=== PATIENT | male | born 1975 | race African-American/Black ===

== ENCOUNTER 2018-09-17 02:37 | Inpatient (IN) | payer MEDICAID ==
[~2018-09-17] VITALS: Ht 188 cm; Wt 85.4 kg
[2018-09-17 03:34] LABS: Basophils # (auto) 0 uL; Basophils % (auto) 0.7 % (0.0-2.0); Eosinophils # (auto) 0.1 uL; Eosinophils % (auto) 2.6 % (0.0-7.0); Hematocrit 41.6 % (41.0-53.0); Hemoglobin 13.7 g/dL (13.5-17.5); Lymphocytes # (auto) 1.6 uL; Lymphocytes % (auto) 29.9 % (10.0-50.0); Mean Corpuscular Hemoglobin 31.1 pg (28.0-32.0); Mean Corpuscular Volume 94.4 fL (80.0-100.0); Monocytes # (auto) 0.8 uL; Monocytes % (auto) 13.8 % (0.0-12.0); Neutrophils # (auto) 2.9 uL; Nucleated Red Blood Cells % 0.3 %; Platelet Count (auto) 162 10^3/uL (140-450); Red Blood Cells 4.41 10^6/uL (4.5-5.90); Red Cell Distribution Width 15.1 % (11.8-14.3); White Blood Cell 5.5 10^3/uL (4.4-10.8)
[2018-09-17 03:49] LABS: Albumin 2.9 g/dL (3.4-5.0); Anion Gap 11 (5-15); BUN/Creatinine Ratio 12.4; Blood Urea Nitrogen 16 mg/dL (7-18); Calcium 8.4 mg/dL (8.5-10.1); Carbon Dioxide 21 mmol/L (21-32); Chloride 108 mmol/L (98-107); GFR African American 79 mL/min; GFR Non-African American 65 mL/min; Glucose 105 mg/dL (74-106); Magnesium 2.4 mg/dL (1.6-2.6); Potassium 4.9 mmol/L (3.5-5.1); Sodium 140 mmol/L (136-145)
[2018-09-17 03:54] LABS: Alanine Aminotransferase 474 U/L (16-61); Alkaline Phosphatase 117 U/L (45-117); Aspartate Aminotransferase 204 U/L (15-37); Bilirubin, Total 1.6 mg/dL (0.2-1.0); Total Protein 6.3 g/dL (6.4-8.2)
[2018-09-17] MEDS ORDERED: ASPirin 81 mg TAB PO ONE (07:00)
[2018-09-17] MEDS ORDERED: FUROSEMIDE 40 MG/4 ML VIAL IV ONE ×2 (07:00→21:45)
[2018-09-17] MEDS ORDERED: ENOXAPARIN SOD 100 MG/1 ML SYRINGE SC ONE (08:00)
[2018-09-17] MEDS ORDERED: NITROGLYCERIN 0.4 MG SL TAB SL PRN (09:15)
[2018-09-17] MEDS ORDERED: ACETAMINOPHEN 500 MG TAB PO PRN (09:15)
[2018-09-17] MEDS ORDERED: MORPHINE SULF INJ 2 MG/ML SYRINGE 1ML IV PRN (09:15)
[2018-09-17] MEDS ORDERED: traMADol HCL 50 MG TAB PO PRN (09:15)
[2018-09-17] MEDS ORDERED: TEMAZEPAM 15 MG CAP PO PRN (09:15)
[2018-09-17] MEDS ORDERED: LACTULOSE 20Gm/30ML SOLN PO PRN (09:15)
[2018-09-17] MEDS ORDERED: PROMETHAZINE HCL 25 MG/ML 1ML IV PRN (09:15)
[2018-09-17] MEDS ORDERED: FUROSEMIDE 40 MG/4 ML VIAL IV SCH (10:00)
[2018-09-17] MEDS ORDERED: ENALAPRIL MALEATE 2.5 MG TAB PO SCH (10:00)
[2018-09-17] MEDS ORDERED: LISINOPRIL 5 MG TAB PO SCH (10:00)
[2018-09-17] MEDS ORDERED: CARVEDILOL 3.125 MG TAB PO SCH (10:00)
[2018-09-17] MEDS ORDERED: ENOXAPARIN SOD 100 MG/1 ML SYRINGE SC SCH (10:00)
[2018-09-17] MEDS: POTASSIUM CHL 20 Meq TABLET PO SCH (10:09)
[2018-09-17] MEDS: PANTOPRAZOLE 40 MG TAB PO SCH (10:09)
[2018-09-17] MEDS: ASPirin 81 mg TAB PO SCH (10:09)
[2018-09-17] MEDS: NITROGLYCERIN 0.2MG/HR TOPICAL PATCH TD SCH (10:10)
[2018-09-17] MEDS: METOPROLOL SUCCINATE XL 50 MG TAB PO SCH (10:12)
[2018-09-17] MEDS ORDERED: BUMETANIDE 2.5mg/10ml (0.25 mg/ml) INJ IV ONE (14:30)
[2018-09-17] MEDS: SODIUM CHLOR 0.9% PF (SALINE LOCK) 10ML VIAL/SYR IV SCH ×2 (14:41→22:02)
[2018-09-17] MEDS: ATORVASTATIN 20 MG TAB PO SCH (22:42)
[2018-09-17] MEDS: ENALAPRIL MALEATE 2.5 MG TAB PO SCH (22:43)
[2018-09-18 03:51] LABS: Basophils # (auto) 0.1 uL; Basophils % (auto) 2.6 % (0.0-2.0); Eosinophils # (auto) 0.2 uL; Eosinophils % (auto) 4.7 % (0.0-7.0); Hematocrit 44.6 % (41.0-53.0); Hemoglobin 14.8 g/dL (13.5-17.5); Lymphocytes # (auto) 1.9 uL; Lymphocytes % (auto) 37.5 % (10.0-50.0); Mean Corpuscular Hemoglobin 31.2 pg (28.0-32.0); Mean Corpuscular Hgb Conc. 33.3 g/dL (32.0-36.0); Mean Corpuscular Volume 93.8 fL (80.0-100.0); Monocytes # (auto) 0.7 uL; Monocytes % (auto) 12.8 % (0.0-12.0); Neutrophils # (auto) 2.2 uL; Neutrophils % (auto) 42.4 % (37.0-80.0); Nucleated Red Blood Cells % 0.2 %; Red Blood Cells 4.76 10^6/uL (4.5-5.90); Red Cell Distribution Width 14.9 % (11.8-14.3); White Blood Cell 5.2 10^3/uL (4.4-10.8)
[2018-09-18 04:36] LABS: BUN/Creatinine Ratio 14.8; Potassium 3.9 mmol/L (3.5-5.1)
[2018-09-18 04:40] LABS: Total Protein 6.3 g/dL (6.4-8.2)
[2018-09-18 04:49] LABS: Platelet Count (auto) 159 10^3/uL (140-450)
[2018-09-18] MEDS: SODIUM CHLOR 0.9% PF (SALINE LOCK) 10ML VIAL/SYR IV SCH ×3 (06:25→22:09)
[2018-09-18] MEDS: FUROSEMIDE 40 MG/4 ML VIAL IV SCH ×2 (07:03→18:07)
[2018-09-18] MEDS: NITROGLYCERIN 0.2MG/HR TOPICAL PATCH TD SCH (10:00)
[2018-09-18] MEDS ORDERED: fentaNYL CITRATE 100 MCG/2 ML VL ONE (11:08)
[2018-09-18] MEDS ORDERED: MIDAZOLAM HCL 1MG/1ML-2 ML VIAL ONE (11:08)
[2018-09-18] MEDS ORDERED: SODIUM CHL 0.9% 0 ML ONE (11:08)
[2018-09-18] MEDS ORDERED: ANGIOMAX 250 MG VIAL IV ONE (11:08)
[2018-09-18] MEDS ORDERED: LIDOCAINE 2%HCL (LOCAL ANESTH.) INJ 20ML MDV ONE (11:15)
[2018-09-18] MEDS ORDERED: IODIXANOL 320MG/ML 100ML BTL IV ONE (11:25)
[2018-09-18] MEDS ORDERED: THIAMINE HCL 100 MG TAB PO ONE (13:15)
--- NOTE | 2018-09-18 14:00 | NUR ---
RECEIVED PT FROM HUMAN RESOURCES OFFICE MANAGER STAFF, PT BROUGHT IN WHEELCHAIR. PT AWAKE, ALERT, ORIENTEDx4, VITAL SIGNS STABLE: 97.4; 88; 22; 99% ON ROOM AIR; 112/70 (85) VASC BAND TO RIGHT WRIST NO BLEEDING AT THIS TIME. ORIENTED PT TO ROOM ENVIRONMENT, BED LOCKED AND IN LOWEST POSITION, CALL LIGHT WITHIN REACH. WILL CONTINUE TO MONITOR. AT 1420: VASC BAND DEFLATED LAST 2ML OF AIR REMOVED, BAND REMOVED AND GAUZE AND TEGADERM APPLIED, NO ACTIVE BLEEDING AT THIS TIME. PT DENIES DISCOMFORT, SENSATION IS INTACT WITH WARM TO TOUCH SKIN TEMPERATURE TO RIGHT HAND. VASC BAND PLACED AT BEDSIDE WITH SYRINGE, PT AWARE OF INSTRUMENTS. VERBALIZES UNDERSTANDING. CALL LIGHT WITHIN REACH. WILL CONTINUE TO MONITOR.
[2018-09-18 14:10] VITALS: BP 112/70
[2018-09-18] MEDS: PANTOPRAZOLE 40 MG TAB PO SCH (14:54)
[2018-09-18] MEDS: POTASSIUM CHL 20 Meq TABLET PO SCH (14:54)
[2018-09-18] MEDS: ASPirin 81 mg TAB PO SCH (14:54)
[2018-09-18] MEDS: ENALAPRIL MALEATE 2.5 MG TAB PO SCH ×2 (14:55→22:02)
[2018-09-18] MEDS: METOPROLOL SUCCINATE XL 50 MG TAB PO SCH (14:56)
--- NOTE | 2018-09-18 16:00 | NUR ---
PT MADE AWARE AND EXPLAINED REASON FOR NPO DUE TO PENDING LIVER US. FAMILY AWARE, PT AWARE. US DEPARTMENT STATES THAT US IS PENDING FOR 1900, INFORMATION RELAYED TO PATIENT.
[2018-09-18 16:44] VITALS: BP 112/72
[2018-09-18 21:17] VITALS: BP 109/76
[2018-09-18] MEDS: ATORVASTATIN 20 MG TAB PO SCH (22:08)
[2018-09-19 04:16] VITALS: BP 109/69
[2018-09-19] MEDS: SODIUM CHLOR 0.9% PF (SALINE LOCK) 10ML VIAL/SYR IV SCH ×3 (06:16→21:14)
[2018-09-19] MEDS: FUROSEMIDE 40 MG/4 ML VIAL IV SCH ×2 (06:17→18:22)
--- NOTE | 2018-09-19 06:24 | NUR ---
DRESSING TO RIGHT WRIST REMAINS C/D/I. NO BLEEDING OR HEMATOMA FORMATION NOTED AT SITE. RADIAL PULSES INTACT BILATERALLY.
[2018-09-19 07:07] LABS: Albumin 2.9 g/dL (3.4-5.0); Calcium 8.9 mg/dL (8.5-10.1); Magnesium 2.7 mg/dL (1.6-2.6); Potassium 3.9 mmol/L (3.5-5.1)
[2018-09-19 07:09] LABS: Bilirubin, Total 1.4 mg/dL (0.2-1.0); Total Protein 6.3 g/dL (6.4-8.2)
[2018-09-19 08:00] VITALS: BP 100/60
--- NOTE | 2018-09-19 08:00 | NUR ---
Opening Shift Note Assumed care of patient, awake, alert and oriented X4. No S/S of distress/SOB or pain. Tele# 23, sinus rhythm @ 95 bpm. IV to right forearm, 20 gauge, patent and saline locked. Instructed on POC and to for assist PRN, verbalized understanding. Bed locked, in lowest position, call light within reach, will continue to monitor for changes Q1hr and PRN.
--- NOTE | 2018-09-19 08:45 | NUR ---
Faxed Life Vest order to [facility].
[2018-09-19 09:44] LABS: Basophils # (auto) 0 uL; Basophils % (auto) 0.9 % (0.0-2.0); Eosinophils # (auto) 0.3 uL; Hematocrit 45.6 % (41.0-53.0); Hemoglobin 15.3 g/dL (13.5-17.5); Lymphocytes # (auto) 1.8 uL; Lymphocytes % (auto) 38.1 % (10.0-50.0); Mean Corpuscular Hemoglobin 31.2 pg (28.0-32.0); Mean Corpuscular Hgb Conc. 33.6 g/dL (32.0-36.0); Monocytes # (auto) 0.6 uL; Monocytes % (auto) 11.9 % (0.0-12.0); Neutrophils # (auto) 2.1 uL; Neutrophils % (auto) 43.1 % (37.0-80.0); Nucleated Red Blood Cells % 0.1 %; Platelet Count (auto) 165 10^3/uL (140-450); Red Blood Cells 4.91 10^6/uL (4.5-5.90); Red Cell Distribution Width 14.8 % (11.8-14.3); White Blood Cell 4.8 10^3/uL (4.4-10.8)
[2018-09-19] MEDS: ENOXAPARIN SOD 40 MG/0.4 ML SYRINGE SC SCH (10:00)
[2018-09-19] MEDS: ASPirin 81 mg TAB PO SCH (12:33)
[2018-09-19] MEDS: MULTIPLE VITAMINS W/ MINERALS TAB PO SCH (12:34)
[2018-09-19] MEDS: PANTOPRAZOLE 40 MG TAB PO SCH (12:34)
[2018-09-19] MEDS: THIAMINE HCL 100 MG TAB PO SCH (12:34)
[2018-09-19] MEDS: POTASSIUM CHL 20 Meq TABLET PO SCH (12:34)
[2018-09-19] MEDS: METOPROLOL SUCCINATE XL 50 MG TAB PO SCH (12:58)
[2018-09-19] MEDS: ENALAPRIL MALEATE 2.5 MG TAB PO SCH ×2 (13:02→21:16)
[2018-09-19 14:13] VITALS: BP 100/59
[2018-09-19 16:57] VITALS: BP 108/71
--- NOTE | 2018-09-19 19:34 | NUR ---
Care endorsed to DENNIS Erickson, night nurse.
[2018-09-19] MEDS: ATORVASTATIN 20 MG TAB PO SCH (21:15)
[2018-09-19 22:00] VITALS: BP 117/53
--- NOTE | 2018-09-20 00:50 | NUR ---
AMBULATION PATIENT AMBULATING AROUND NURSING STATION AND IN HALLWAYS ON RA. NO S/S OF DISTRESS NOTED, NO COMPLAINT OF SOB. GAIT IS STEADY.
[2018-09-20 04:53] VITALS: BP 100/63
[2018-09-20] MEDS: FUROSEMIDE 40 MG/4 ML VIAL IV SCH (06:00)
[2018-09-20 06:16] LABS: Albumin 3.1 g/dL (3.4-5.0); Bilirubin, Direct 0.5 mg/dL (0-0.2)
[2018-09-20 06:18] LABS: Bilirubin, Total 1.2 mg/dL (0.2-1.0); Total Protein 6.1 g/dL (6.4-8.2)
[2018-09-20] MEDS: SODIUM CHLOR 0.9% PF (SALINE LOCK) 10ML VIAL/SYR IV SCH ×2 (06:18→13:30)
[2018-09-20 06:47] LABS: Anion Gap 10 (5-15); BUN/Creatinine Ratio 17.7; Blood Urea Nitrogen 22 mg/dL (7-18); Calcium 8.4 mg/dL (8.5-10.1); Carbon Dioxide 27 mmol/L (21-32); Chloride 103 mmol/L (98-107); GFR African American 82 mL/min; GFR Non-African American 68 mL/min; Glucose 109 mg/dL (74-106); Potassium 4.2 mmol/L (3.5-5.1); Sodium 140 mmol/L (136-145)
--- NOTE | 2018-09-20 08:00 | NUR ---
Opening Shift Note Assumed care of patient, awake, alert and oriented X4. No S/S of distress/SOB or pain. Tele# 23, sinus tachycardia @ 136 bpm. IV to right forearm, 20 gauge, patent and saline locked. Right wrist incision with dressing clean, dry and intact. Instructed on POC and to call for assist PRN, verbalized understanding. Bed locked, in lowest position, call light within reach, will continue to monitor for changes Q1hr and PRN.
[2018-09-20 08:30] VITALS: BP 105/68
--- NOTE | 2018-09-20 09:46 | NUR ---
ROUNDS Dr Nugent at bedside for rounds, new orders received and followed through. Patient updated on plan of care, verbalized understanding.
[2018-09-20] MEDS: PANTOPRAZOLE 40 MG TAB PO SCH (10:27)
[2018-09-20] MEDS: POTASSIUM CHL 20 Meq TABLET PO SCH (10:27)
[2018-09-20] MEDS: ENOXAPARIN SOD 40 MG/0.4 ML SYRINGE SC SCH (10:27)
[2018-09-20] MEDS: ASPirin 81 mg TAB PO SCH (10:27)
[2018-09-20] MEDS: ENALAPRIL MALEATE 2.5 MG TAB PO SCH (10:28)
[2018-09-20] MEDS: THIAMINE HCL 100 MG TAB PO SCH (10:29)
[2018-09-20] MEDS: MULTIPLE VITAMINS W/ MINERALS TAB PO SCH (10:29)
[2018-09-20] MEDS: METOPROLOL SUCCINATE XL 50 MG TAB PO SCH (10:29)
[2018-09-20] MEDS ORDERED: ATOR10TA PO (11:11)
[2018-09-20] MEDS ORDERED: POTA1TAB61 PO (11:11)
[2018-09-20] MEDS ORDERED: METO25TA4 PO (11:11)
[2018-09-20] MEDS ORDERED: ENAL5TAB85 PO (11:11)
[2018-09-20] MEDS ORDERED: FURO40TA PO (11:11)
[2018-09-20] MEDS ORDERED: [UNRECOGNIZED DRUG - CODE] PO (11:11)
--- NOTE | 2018-09-20 12:10 | NUR ---
CT Patient taken for CT via bed, no distress noted upon departure.
[2018-09-20 13:00] VITALS: BP 114/70
[2018-09-20 17:12] VITALS: BP 113/82
[2018-09-20 17:29] VITALS: BP 105/68
[2018-09-21 11:00] LABS: Hepatitis B Surface Antibody Negative
[2018-09-21 11:31] LABS: Hepatitis A Total Antibody Negative
[2018-09-21 13:45] LABS: Hepatitis C Antibody Negative (Negative)
[2018-09-21 13:46] LABS: Hepatitis B Core Total AB Negative; Hepatitis B Surface Antigen Negative (Negative)
== END 2018-09-20 18:30 | disposition home or self-care (01) | DRG 190 ==
LOC: ER 02:37 → OVERFLOW 02:38 → TELE-WESTW 09-18 14:25
PROVIDERS: ADMIT Internal Medicine; ATTEND Internal Medicine
PROC: 4A023N7 Measurement of Cardiac Sampling and Pressure, Left Heart, Percutaneous Approach (ICD-10-PCS; principal; 2018-09-18)
PROC: B2111ZZ Fluoroscopy of Multiple Coronary Arteries using Low Osmolar Contrast (ICD-10-PCS; 2018-09-18)
PROC: B2151ZZ Fluoroscopy of Left Heart using Low Osmolar Contrast (ICD-10-PCS; 2018-09-18)
DX: I21.A1 Myocardial infarction type 2 (principal); I50.43 Acute on chronic combined systolic (congestive) and diastolic (congestive) heart failure; I42.0 Dilated cardiomyopathy; K70.9 Alcoholic liver disease, unspecified; I42.7 Cardiomyopathy due to drug and external agent; I11.0 Hypertensive heart disease with heart failure; F15.10 Other stimulant abuse, uncomplicated; F10.10 Alcohol abuse, uncomplicated; F17.210 Nicotine dependence, cigarettes, uncomplicated; R73.03 Prediabetes; F12.10 Cannabis abuse, uncomplicated; Z79.899 Other long term (current) drug therapy; Y90.9 Presence of alcohol in blood, level not specified
CPT/HCPCS: 36415; 71045; 76705; 80048; 80053; 80061; 80076; 82550; 83036; 83735; 83880; 84443; 84484; 85025; 86704; 86706; 86708; 86803; 87340; 93005; 93306; G0378; J2250; Q9967

== ENCOUNTER 2018-12-09 20:55 | Inpatient (IN) | payer MEDICAID ==
[~2018-12-09] VITALS: Ht 157.5 cm; Wt 113.4 kg
[~2018-12-09 20:55] MED LIST: APIX5TAB PO; ATOR10TA PO; BUSP10TA31 PO; FURO1TAB31 PO; METO25TA36 PO; POTA1TAB61 PO; SPIR25TA88 PO; [UNRECOGNIZED DRUG - CODE] PO
[2018-12-09 22:07] LABS: Basophils # (auto) 0 uL; Eosinophils # (auto) 0 uL; Eosinophils % (auto) 0.3 % (0.0-7.0); Hematocrit 40.3 % (41.0-53.0); Hemoglobin 13.2 g/dL (13.5-17.5); Lymphocytes # (auto) 1.2 uL; Lymphocytes % (auto) 26.7 % (10.0-50.0); Mean Corpuscular Hemoglobin 27.9 pg (28.0-32.0); Mean Corpuscular Hgb Conc. 32.7 g/dL (32.0-36.0); Mean Corpuscular Volume 85.1 fL (80.0-100.0); Monocytes # (auto) 0.6 uL; Monocytes % (auto) 13.7 % (0.0-12.0); Neutrophils # (auto) 2.5 uL; Neutrophils % (auto) 58.3 % (37.0-80.0); Nucleated Red Blood Cells % 0.1 %; Platelet Count (auto) 111 10^3/uL (140-450); Red Blood Cells 4.74 10^6/uL (4.5-5.90); Red Cell Distribution Width 19.9 % (11.8-14.3); White Blood Cell 4.4 10^3/uL (4.4-10.8)
[2018-12-09 22:13] LABS: INR 1.4 (0.9-1.15); Partial Thromboplastin Time 32.6 sec (23.64-32.05)
[2018-12-09] MEDS ORDERED: FUROSEMIDE 40 MG/4 ML VIAL IV ONE (22:15)
[2018-12-09] MEDS ORDERED: MORPHINE SULF INJ 2 MG/ML SYRINGE 1ML IV ONE (22:45)
[2018-12-09] MEDS ORDERED: LORazepam 2MG/ML-1ML VIAL IV ONE (22:45)
[2018-12-09 23:19] LABS: Chloride 104 mmol/L (98-107); Potassium 4.3 mmol/L (3.5-5.1); Sodium 136 mmol/L (136-145)
[2018-12-09 23:20] LABS: Alanine Aminotransferase 52 U/L (16-61); Albumin 2.9 g/dL (3.4-5.0); Alkaline Phosphatase 128 U/L (45-117); Anion Gap 11 (5-15); Aspartate Aminotransferase 43 U/L (15-37); BUN/Creatinine Ratio 23.8; Bilirubin, Total 2.8 mg/dL (0.2-1.0); Blood Urea Nitrogen 31 mg/dL (7-18); Carbon Dioxide 21 mmol/L (21-32); GFR African American 77 mL/min; GFR Non-African American 64 mL/min; Glucose 117 mg/dL (74-106); Magnesium 2.5 mg/dL (1.6-2.6); Total Protein 7.1 g/dL (6.4-8.2)
[2018-12-10] MEDS ORDERED: MORPHINE SULF INJ 2 MG/ML SYRINGE 1ML IV PRN (04:30)
[2018-12-10] MEDS ORDERED: NITROGLYCERIN 0.4 MG SL TAB SL PRN (04:30)
[2018-12-10] MEDS ORDERED: ACETAMINOPHEN 500 MG TAB PO PRN (04:30)
[2018-12-10 05:23] LABS: Alcohol, Urine < 3.0 mg/dL (0-5); Amphetamine Screen, Urine NEGATIVE (NEGATIVE); Barbiturate Scree,Urine NEGATIVE (NEGATIVE); Benzodiazephine Screen, Urine NEGATIVE (NEGATIVE); Cannabinoid Screen, Urine POSITIVE (NEGATIVE); Cocaine Screen, Urine NEGATIVE (NEGATIVE); Phencyclidine Screen, Urine NEGATIVE (NEGATIVE)
[2018-12-10 05:25] LABS: Urine Bacteria NONE SEEN /hpf (None Seen); Urine Blood Negative /uL (Negative); Urine Hyaline Cast MOD /lpf (0 - 2); Urine Specific Gravity 1.012 (1.001-1.035); Urine WBC 1 /hpf (0 - 3)
[2018-12-10 05:30] LABS: Opiate Scree,Urine NEGATIVE (NEGATIVE)
[2018-12-10] MEDS ORDERED: FUROSEMIDE 40 MG/4 ML VIAL IV SCH (06:00)
[2018-12-10] MEDS: busPIRone HCL 10 MG TAB PO SCH ×3 (06:10→22:43)
[2018-12-10] MEDS: BUMETANIDE 1mg/4ml VIAL (0.25mg/ml) IV SCH ×2 (06:10→17:43)
[2018-12-10] MEDS ORDERED: HEPARIN DRIP/D5W 100UNITS/ML 250 ML IV SCH (06:29)
[2018-12-10] MEDS ORDERED: HEPARIN SODIUM (PORCINE) 5000 UNITS/ML 1ML VIAL IV ONE (06:30)
[2018-12-10] MEDS: ONDANSETRON HCL 4 MG/2 ML VIAL IV PRN (07:47)
[2018-12-10 08:17] LABS: Basophils # (auto) 0.1 uL; Basophils % (auto) 1.8 % (0.0-2.0); Eosinophils # (auto) 0 uL; Eosinophils % (auto) 0.2 % (0.0-7.0); Hematocrit 44.2 % (41.0-53.0); Hemoglobin 14.4 g/dL (13.5-17.5); Lymphocytes # (auto) 2.2 uL; Mean Corpuscular Hemoglobin 27.4 pg (28.0-32.0); Mean Corpuscular Hgb Conc. 32.5 g/dL (32.0-36.0); Mean Corpuscular Volume 84.3 fL (80.0-100.0); Monocytes # (auto) 0.5 uL; Monocytes % (auto) 10.7 % (0.0-12.0); Neutrophils # (auto) 2.2 uL; Neutrophils % (auto) 44.3 % (37.0-80.0); Nucleated Red Blood Cells % 0.3 %; Platelet Count (auto) 109 10^3/uL (140-450); Red Blood Cells 5.25 10^6/uL (4.5-5.90); Red Cell Distribution Width 19.9 % (11.8-14.3)
--- NOTE | 2018-12-10 09:13 | NUR ---
Telemetry admit from ER JEWELS TORRESClarenceMaycol admitted to Telemetry unit after SBAR received. Patient oriented to ZENIA ERWIN, primary RN, unit, room, bed, and unit policies regarding patient care and visiting hours. Patient now on continuous telemetry monitoring, tele box 56 and telemetry reading on arrival to unit is SR 104. Patient weighed by bedscale and encouraged to call if they need something. All questions and concerns addressed, patient verbalized understanding.
[2018-12-10] MEDS ORDERED: APIX5TAB PO (09:33)
[2018-12-10] MEDS ORDERED: ENALAPRIL MALEATE 2.5 MG TAB PO SCH (10:00)
[2018-12-10] MEDS ORDERED: APIXABAN 5 MG TAB PO SCH (10:00)
[2018-12-10] MEDS: CARVEDILOL 3.125 MG TAB PO SCH ×2 (11:43→22:42)
[2018-12-10] MEDS: ASPirin-EC 81 mg tab PO SCH (11:44)
[2018-12-10] MEDS: FAMOTIDINE 20 MG TAB PO SCH (11:44)
[2018-12-10] MEDS: metOLazone 5 MG TAB PO SCH (11:45)
--- NOTE | 2018-12-10 12:52 | NUR ---
MRSA sent to lab.
[2018-12-10] MEDS: HYDROcodone-ACET 5/325MG TAB PO PRN ×2 (15:50→22:43)
[2018-12-10] MEDS: ALBUMIN 25% 50 ML IV SCH ×2 (15:59→22:45)
[2018-12-10 17:35] VITALS: BP 97/62
--- NOTE | 2018-12-10 19:00 | NUR ---
Opening Shift Note Assumed care of patient, awake and alert. No S/S of distress/SOB or pain. Instructed on POC and to call for assist PRN, will continue to monitor for changes Q1hr and PRN.
[2018-12-10 22:08] VITALS: BP 136/89
[2018-12-10] MEDS: ATORVASTATIN 20 MG TAB PO SCH (22:43)
[2018-12-10] MEDS: SACUBITRIL-VALSARTAN 24mg/26mg TAB PO SCH (22:44)
[2018-12-11] VITALS (7 sets, daily range): BP systolic 87–99; BP diastolic 39–59
[2018-12-11] MEDS: BUMETANIDE 1mg/4ml VIAL (0.25mg/ml) IV SCH ×2 (06:00→17:56)
[2018-12-11] MEDS: ALBUMIN 25% 50 ML IV SCH ×2 (06:37→22:01)
[2018-12-11] MEDS: busPIRone HCL 10 MG TAB PO SCH ×3 (06:38→22:03)
[2018-12-11] MEDS ORDERED: DIGOXIN (250MCG/ML) 2 ML AMPULE IV ONE (07:30)
--- NOTE | 2018-12-11 08:30 | NUR ---
Opening Shift Note Assumed care of patient, awake and alert. No S/S of distress/SOB or pain. Bed is in lowest position with 2x side rails up for safety and call light is within reach. Instructed on POC and to call for assist PRN, will continue to monitor for changes Q1hr and PRN.
[2018-12-11] MEDS: DOBUTamine 1000MCG/ML 250 ML IV SCH ×2 (08:38→22:02)
[2018-12-11] MEDS: ASPirin-EC 81 mg tab PO SCH (08:46)
[2018-12-11] MEDS: FAMOTIDINE 20 MG TAB PO SCH (08:47)
[2018-12-11] MEDS: metOLazone 5 MG TAB PO SCH (10:00)
[2018-12-11] MEDS: CARVEDILOL 3.125 MG TAB PO SCH ×2 (10:00→22:05)
[2018-12-11] MEDS: SACUBITRIL-VALSARTAN 24mg/26mg TAB PO SCH ×2 (10:00→22:02)
[2018-12-11 10:09] LABS: Basophils # (auto) 0.1 uL; Eosinophils # (auto) 0 uL; Eosinophils % (auto) 1.2 % (0.0-7.0); Hemoglobin 12.5 g/dL (13.5-17.5); Lymphocytes # (auto) 1.6 uL; Lymphocytes % (auto) 41.5 % (10.0-50.0); Mean Corpuscular Hemoglobin 27.6 pg (28.0-32.0); Mean Corpuscular Hgb Conc. 32.8 g/dL (32.0-36.0); Mean Corpuscular Volume 84.2 fL (80.0-100.0); Monocytes # (auto) 0.4 uL; Monocytes % (auto) 11.3 % (0.0-12.0); Neutrophils # (auto) 1.7 uL; Nucleated Red Blood Cells % 0.1 %; Platelet Count (auto) 85 10^3/uL (140-450); Red Blood Cells 4.51 10^6/uL (4.5-5.90); Red Cell Distribution Width 19.7 % (11.8-14.3); White Blood Cell 3.9 10^3/uL (4.4-10.8)
[2018-12-11 10:22] LABS: Calcium 8.9 mg/dL (8.5-10.1); Potassium 3.5 mmol/L (3.5-5.1)
--- NOTE | 2018-12-11 11:22 | NUR ---
RE: scheduled BP medications 1000 scheduled BP medications held per the order of Dr. Zaldivar due to low BP 93/50mmHG.
--- NOTE | 2018-12-11 12:45 | NUR ---
IV removal IV DC'd with clean sterile technique, catheter fully intact. Pressure dressing applied to site. Patient tolerated well.
[2018-12-11] MEDS: HYDROcodone-ACET 5/325MG TAB PO PRN ×2 (12:58→22:49)
--- NOTE | 2018-12-11 13:21 | NUR ---
RE: Echocardiogram Notified Dr. Zaldivar that patient is requesting echocardiogram. MD verbalized understanding. Orders received and read back to verify.
--- NOTE | 2018-12-11 14:35 | NUR ---
instructor adjunct pharmacy technician at bedside.
[2018-12-11] MEDS ORDERED: OPTISON 3ml Vial for INJ IV ONE (15:08)
--- NOTE | 2018-12-11 16:17 | NUR ---
Complete bed linen change Patient transferred self independently to personal platform walker at bedside with no complications. New patient gown provided. Patient returned to bed with no complications. Respirations even and unlabored, no distress noted. Call light within reach. Bed in lowest locked position, x2 side rails up. Will continue to monitor q1hr & PRN.
[2018-12-11 17:41] LABS: Magnesium 2.3 mg/dL (1.6-2.6); Potassium 3.3 mmol/L (3.5-5.1)
[2018-12-11] MEDS ORDERED: ALBUMIN 25% 50 ML IV SCH (18:00)
--- NOTE | 2018-12-11 18:42 | NUR ---
Paged on-call hospitalist RE: potassium level Spoke with MIRLANDE Mancia.
--- NOTE | 2018-12-11 18:48 | NUR ---
RE: potassium Notified Alfredo Eddy N.P.; on-call hospitalist, of patient's potassium level. Orders received and read back to verify.
--- NOTE | 2018-12-11 18:49 | NUR ---
Closing note patient resting in bed with even and unlabored respirations, no distress noted. Fall precautions in place with bed in lowest locked position, call light within reach. Patient's personal platform walker at bedside. Dobutamine being administered per MD order.
--- NOTE | 2018-12-11 19:30 | NUR ---
Care endorsed to DENNIS Galaviz.
[2018-12-11] MEDS ORDERED: POTASSIUM CHL 20 Meq TABLET PO ONE (20:00)
[2018-12-11] MEDS: ATORVASTATIN 20 MG TAB PO SCH (22:05)
[2018-12-12] MEDS: HYDROcodone-ACET 5/325MG TAB PO PRN ×3 (04:49→16:54)
[2018-12-12 05:32] VITALS: BP 101/41
[2018-12-12] MEDS: BUMETANIDE 1mg/4ml VIAL (0.25mg/ml) IV SCH ×2 (06:00→18:00)
[2018-12-12] MEDS: ALBUMIN 25% 50 ML IV SCH ×2 (06:43→18:25)
[2018-12-12] MEDS: busPIRone HCL 10 MG TAB PO SCH ×3 (06:43→21:44)
--- NOTE | 2018-12-12 07:30 | NUR ---
RECEIVED AND IMPLEMENTED HEPARIN DRIP AND PTT ORDER FROM DOCTOR MOSLEY. SPOKE WITH PHARMACY AND INFORMED THE DAY NURSE.
--- NOTE | 2018-12-12 08:15 | NUR ---
Opening Shift Note Assumed care of patient, awake, alert and oriented. No S/S of distress/SOB or pain. Bed in low/locked position, bed rails up x2. Instructed on POC and to call for assist PRN with call light within reach. All questions/concerns answered. Will continue to monitor for changes Q1hr and PRN.
[2018-12-12 08:28] VITALS: BP 102/48
[2018-12-12] MEDS: SACUBITRIL-VALSARTAN 24mg/26mg TAB PO SCH ×2 (10:00→21:23)
[2018-12-12] MEDS: CARVEDILOL 3.125 MG TAB PO SCH ×2 (10:00→21:23)
[2018-12-12] MEDS: metOLazone 5 MG TAB PO SCH (10:00)
[2018-12-12] MEDS: FAMOTIDINE 20 MG TAB PO SCH (10:02)
[2018-12-12] MEDS: ASPirin-EC 81 mg tab PO SCH (10:03)
[2018-12-12 10:34] LABS: Basophils # (auto) 0 uL; Basophils % (auto) 0.8 % (0.0-2.0); Eosinophils # (auto) 0.1 uL; Eosinophils % (auto) 1.5 % (0.0-7.0); Hematocrit 38.9 % (41.0-53.0); Hemoglobin 12.9 g/dL (13.5-17.5); Lymphocytes # (auto) 1.4 uL; Lymphocytes % (auto) 35.4 % (10.0-50.0); Mean Corpuscular Hemoglobin 27.5 pg (28.0-32.0); Mean Corpuscular Hgb Conc. 33.2 g/dL (32.0-36.0); Mean Corpuscular Volume 82.9 fL (80.0-100.0); Monocytes # (auto) 0.4 uL; Monocytes % (auto) 10.2 % (0.0-12.0); Neutrophils # (auto) 2.1 uL; Neutrophils % (auto) 52.1 % (37.0-80.0); Nucleated Red Blood Cells % 0.2 %; Platelet Count (auto) 88 10^3/uL (140-450); Red Blood Cells 4.69 10^6/uL (4.5-5.90); Red Cell Distribution Width 19.7 % (11.8-14.3); White Blood Cell 4.1 10^3/uL (4.4-10.8)
[2018-12-12 10:44] LABS: INR 1.37 (0.9-1.15); Partial Thromboplastin Time 32.5 sec (23.64-32.05)
[2018-12-12] MEDS: DOBUTamine 1000MCG/ML 250 ML IV SCH ×2 (11:20→15:33)
[2018-12-12 11:44] LABS: Albumin 2.8 g/dL (3.4-5.0); Calcium 8.5 mg/dL (8.5-10.1); Potassium 3.4 mmol/L (3.5-5.1)
[2018-12-12 11:46] LABS: Bilirubin, Total 2.7 mg/dL (0.2-1.0); Total Protein 6.1 g/dL (6.4-8.2)
[2018-12-12] MEDS: HEPARIN DRIP/D5W 100UNITS/ML 250 ML IV SCH (12:08)
[2018-12-12 13:04] VITALS: BP 91/44
--- NOTE | 2018-12-12 15:41 | NUR ---
assessment Patient is a 43 year old male who is alert and oriented. Patients cognitive abilities are intact. Prior to admission patient lived home with family and functioned with assistance. Per patient he will return home to his prior living arrangements post discharge and family will transport him home. Patients PCP is Dr Estrella. Patient has 02, rollator, and a nebulizer. Patient may also benefit from home health for PT and med management resumption order. Patient was on service with Maryam Tara on prior admission. I informed patient he has a right to speak to a manager social responsibility regarding all care. I informed patient he has a right to participate in any and all discharge planning. Patient does not have a POA and advanced directive. I have offered patient information on POA and advanced directives. I informed the patient the advantages and benefits of having an Advanced Directive. Patient verbalized understanding and agreed to discharge plan. Addendum: 12/12/18 at 1542 by Anabel MORALES Amended: Links added.
[2018-12-12 16:33] VITALS: BP 81/59
--- NOTE | 2018-12-12 18:21 | NUR ---
PAGEKeon MOSLEY RE: PATIENT'S B/P 81/59. AWAITING RETURN CALL
[2018-12-12 18:32] LABS: Magnesium 2.1 mg/dL (1.6-2.6); Potassium 3.2 mmol/L (3.5-5.1)
[2018-12-12 18:45] LABS: INR 1.32 (0.9-1.15)
--- NOTE | 2018-12-12 18:48 | NUR ---
PAGED PAGE OUT TO HOSPITALIST RE: POTASSIUM LEVEL 3.2
--- NOTE | 2018-12-12 18:49 | NUR ---
PAGED HOSPITALIST PAGED HOSPITALIST RE: POTASSIUM LEVEL OF 3.2 RETURN CALL RECEIVED CALL FROM HOSPITALIST RE: POTASSIUM LEVEL. NEW ORDERS RECEIVED/CARRIED OUT
[2018-12-12] MEDS ORDERED: POTASSIUM CHL 20 Meq TABLET PO ONE (19:00)
--- NOTE | 2018-12-12 19:45 | NUR ---
Opening Shift Note Assumed care of patient, lying in bed with HOB elevated, awake and alert, oriented x 4, clear speech, follows direction. On room air with even and unlabored respirations, no s/s of distress or SOB. Patient reports SOB with exertion and unable to lay flat. Patient reports he uses oxygen at home 2-3L as needed. Urinal is at bedside within reach. Patients walker from home at bedside. IV to right AC 18g intact and patent infusing heparin at 10mL/hr. IV to right forearm 22g intact and patent infusing dobutamine at 17.96mL/hr. Noted +2 pitting edema to bilateral LE. Bed low locked position with side rails up x 2 and call light within reach. Family at bedside. Instructed on POC for heparin drip with lab draw, dobutamine drip, patient verbalized understanding. Instructed to call for assist PRN, will continue to monitor for changes Q1hr and PRN.
--- NOTE | 2018-12-12 20:05 | NUR ---
Increased Heparin Drip rate to 12mL/hr rate currently at 10mL/hr. PTT resulted 38.1. Increased rate by 2mL per heparin protocol with Jose J Maravilla RN at bedside as secondary bilingual hr generalist. Rate is now 12mL/hr.
[2018-12-12] MEDS: POTASSIUM CHLORIDE 8 MEQ TAB PO SCH (21:43)
[2018-12-12] MEDS: ATORVASTATIN 20 MG TAB PO SCH (21:44)
[2018-12-12 22:00] VITALS: BP 99/51
[2018-12-13 00:37] VITALS: BP 99/51
[2018-12-13] MEDS: HYDROcodone-ACET 5/325MG TAB PO PRN ×3 (01:00→21:14)
[2018-12-13 02:41] LABS: INR 1.32 (0.9-1.15); Partial Thromboplastin Time 43.9 sec (23.64-32.05)
--- NOTE | 2018-12-13 02:45 | NUR ---
Increased Heparin Drip rate to 14mL/hr rate currently at 12mL/hr. PTT resulted 43.9. Increased rate by 2mL per heparin protocol with Abby Martinez RN at bedside as secondary estate and trust tax principal. Rate is now 14mL/hr.
[2018-12-13] MEDS: ALBUMIN 25% 50 ML IV SCH ×2 (05:21→18:12)
[2018-12-13] MEDS: busPIRone HCL 10 MG TAB PO SCH ×3 (05:22→21:12)
[2018-12-13 05:57] VITALS: BP 100/64
[2018-12-13] MEDS: BUMETANIDE 1mg/4ml VIAL (0.25mg/ml) IV SCH ×2 (06:00→17:15)
--- NOTE | 2018-12-13 07:01 | NUR ---
Closing Note patient awake lying in bed with HOB and bilateral legs elevated, awake and alert. On room air with even and unlabored respirations, no s/s of distress or SOB. Urinal is at bedside within reach. IV to right AC 18g intact and patent infusing heparin at 14mL/hr. IV to right forearm 22g intact and patent infusing dobutamine at 17.96mL/hr. Bed low locked position with side rails up x 2 and call light within reach. Endorsed care to day shift RN.
--- NOTE | 2018-12-13 07:35 | NUR ---
Opening Shift Note Assumed care of patient, asleep. No S/S of distress/SOB or pain. Bed in low/locked position, bed rails up x2. Will continue to monitor for changes Q1hr and PRN.
[2018-12-13 09:10] LABS: Basophils # (auto) 0.1 uL; Basophils % (auto) 2.1 % (0.0-2.0); Eosinophils # (auto) 0.1 uL; Eosinophils % (auto) 1.1 % (0.0-7.0); Hematocrit 40.3 % (41.0-53.0); Hemoglobin 13.3 g/dL (13.5-17.5); Lymphocytes # (auto) 1.3 uL; Lymphocytes % (auto) 23.4 % (10.0-50.0); Mean Corpuscular Hemoglobin 27.5 pg (28.0-32.0); Mean Corpuscular Volume 83.3 fL (80.0-100.0); Monocytes # (auto) 0.6 uL; Monocytes % (auto) 10.1 % (0.0-12.0); Neutrophils # (auto) 3.6 uL; Neutrophils % (auto) 63.3 % (37.0-80.0); Nucleated Red Blood Cells % 0.1 %; Platelet Count (auto) 98 10^3/uL (140-450); Red Blood Cells 4.84 10^6/uL (4.5-5.90); White Blood Cell 5.7 10^3/uL (4.4-10.8)
--- NOTE | 2018-12-13 09:16 | NUR ---
D/C Planning Per consult for [facility] TCM[facility]. Per Lorrie from [facility] Pt has been accepted and service to start within 48 hrs upon d/c day. Addendum: 12/13/18 at 1606 by ROCKY LAMA Amended: Links added.
[2018-12-13] MEDS: FAMOTIDINE 20 MG TAB PO SCH (09:23)
[2018-12-13] MEDS: POTASSIUM CHLORIDE 8 MEQ TAB PO SCH ×3 (09:23→21:13)
[2018-12-13 09:26] VITALS: BP 104/56
[2018-12-13 09:30] LABS: Calcium 8.7 mg/dL (8.5-10.1); Magnesium 2.1 mg/dL (1.6-2.6); Potassium 3.3 mmol/L (3.5-5.1)
[2018-12-13] MEDS: HEPARIN DRIP/D5W 100UNITS/ML 250 ML IV SCH (09:33)
[2018-12-13 09:34] LABS: BUN/Creatinine Ratio 26.7
--- NOTE | 2018-12-13 09:45 | NUR ---
IV removal IV DC'd with sterile technique, catheter fully intact. Pressure dressing applied to site. Patient tolerated procedure well. Discharged with aftercare instructions per MD. IV insertion IV access obtained, via clean sterile technique by inserting 20 gauge catheter at RFA after 1 attempt. IV secured properly. No trauma to site. Patient tolerated well.
[2018-12-13] MEDS: SACUBITRIL-VALSARTAN 24mg/26mg TAB PO SCH ×2 (09:47→22:00)
[2018-12-13] MEDS: CARVEDILOL 3.125 MG TAB PO SCH ×2 (09:47→22:00)
[2018-12-13] MEDS: metOLazone 5 MG TAB PO SCH (09:47)
[2018-12-13 09:58] LABS: INR 1.29 (0.9-1.15); Partial Thromboplastin Time 46.9 sec (23.64-32.05)
[2018-12-13] MEDS: ASPirin-EC 81 mg tab PO SCH (10:30)
--- NOTE | 2018-12-13 10:30 | NUR ---
Increased Heparin Drip rate to 16mL/hr rate currently at 14mL/hr. PTT resulted 46.9. Increased rate by 2mL per heparin protocol with DENNIS RICE at bedside as secondary microsoft bi architect. Rate is now 16mL/hr.
[2018-12-13] MEDS: DOBUTamine 1000MCG/ML 250 ML IV SCH (10:31)
[2018-12-13 12:34] VITALS: BP 93/62
--- NOTE | 2018-12-13 14:34 | NUR ---
Estimated needs based on AJBW 66.7 kg-wt maintenance factors 0954-8351 kcal (23-25 kcal/kg) 53-67 g protein (0.8-1.0 g/kg) Addendum: 12/13/18 at [address] Amended: Links added.
[2018-12-13 16:56] VITALS: BP 103/72
[2018-12-13 17:24] LABS: INR 1.28 (0.9-1.15); Partial Thromboplastin Time 32.7 sec (23.64-32.05)
--- NOTE | 2018-12-13 18:16 | NUR ---
Increased Heparin Drip rate to 19mL/hr rate currently at 16mL/hr. PTT resulted 32.7. Bolus given of 5,000 units. Increased rate by 3mL per heparin protocol with DENNIS RICE at bedside as secondary animal taxonomist. Rate is now 19mL/hr.
[2018-12-13] MEDS: ATORVASTATIN 20 MG TAB PO SCH (21:13)
[2018-12-13 21:54] VITALS: BP 103/61
--- NOTE | 2018-12-14 00:03 | NUR ---
called lab for PT/PTT blood work due at 0024
[2018-12-14 01:11] LABS: INR 1.31 (0.9-1.15); Partial Thromboplastin Time 33.8 sec (23.64-32.05)
[2018-12-14] MEDS ORDERED: HEPARIN SODIUM (PORCINE) 5000 UNITS/ML 1ML VIAL ONE (01:35)
--- NOTE | 2018-12-14 01:50 | NUR ---
Increased Heparin Drip rate to 22mL/hr rate currently at 19mL/hr. PTT resulted 33.8. Bolus given of 5,000 units. Increased rate by 3mL per heparin protocol with Kalie at bedside as secondary plasma cutting machine operator. Rate is now 22mL/hr.
[2018-12-14] MEDS: DOBUTamine 1000MCG/ML 250 ML IV SCH ×3 (04:37→21:01)
[2018-12-14 04:49] VITALS: BP 94/65
[2018-12-14] MEDS: busPIRone HCL 10 MG TAB PO SCH ×3 (05:53→21:33)
[2018-12-14] MEDS: ALBUMIN 25% 50 ML IV SCH ×2 (05:53→17:41)
[2018-12-14] MEDS: BUMETANIDE 1mg/4ml VIAL (0.25mg/ml) IV SCH ×2 (05:54→17:27)
--- NOTE | 2018-12-14 07:06 | NUR ---
Report given to ammy rivas
[2018-12-14 07:39] LABS: INR 1.31 (0.9-1.15)
[2018-12-14 07:47] LABS: Partial Thromboplastin Time 107.6 sec (23.64-32.05)
--- NOTE | 2018-12-14 07:55 | NUR ---
HEPARIN DRIP STOPPED HEPARIN PER PROTOCOL, APTT 107.6. PER PROTOCOL HOLD 1 HOUR THEN DECREASE RATE BY 3ML/HR
[2018-12-14] MEDS: HYDROcodone-ACET 5/325MG TAB PO PRN ×3 (08:08→17:27)
[2018-12-14] MEDS: FAMOTIDINE 20 MG TAB PO SCH (08:08)
[2018-12-14] MEDS: POTASSIUM CHLORIDE 8 MEQ TAB PO SCH ×2 (08:09→21:34)
[2018-12-14] MEDS: CARVEDILOL 3.125 MG TAB PO SCH ×2 (08:10→21:27)
[2018-12-14] MEDS: ASPirin-EC 81 mg tab PO SCH (08:10)
[2018-12-14] MEDS: SACUBITRIL-VALSARTAN 24mg/26mg TAB PO SCH ×4 (08:10→21:28)
[2018-12-14] MEDS: metOLazone 5 MG TAB PO SCH (08:11)
[2018-12-14] MEDS: HEPARIN DRIP/D5W 100UNITS/ML 250 ML IV SCH ×2 (08:45→16:19)
[2018-12-14 09:00] VITALS: BP 92/55
--- NOTE | 2018-12-14 09:00 | NUR ---
HEPARIN DRIP HEPARIN DECREASED FROM 22 ML/HR TO 19 ML/HR PER PROTOCOL. APTT 107.6
--- NOTE | 2018-12-14 09:00 | NUR ---
PHONE CALL RECEIVED PHONE CALL FROM DR MOSLEY RE: PATIENT POC. NEW ORDERS RECEIVED/CARRIED OUT. WILL CONTINUE TO MONITOR
--- NOTE | 2018-12-14 11:50 | NUR ---
ROUNDS ROUNDING ON PATIENT. PATIENT REQUESTING TO BE DISCONNECTED FROM CONTINUOUS IV (HEPARIN/DOBUTAMINE DRIPS). EDUCATED PATIENT ON IMPORTANCE OF CONTINUOUS IV MEDICATIONS AND RISKS. PATIENT STILL REQUESTING TO BE DISCONNECTED. WILL PAGE
--- NOTE | 2018-12-14 12:05 | NUR ---
KIMANI MOSLEY AWAITING CALL BACK
[2018-12-14 13:00] VITALS: BP 97/67
[2018-12-14 16:03] LABS: INR 1.29 (0.9-1.15)
--- NOTE | 2018-12-14 16:20 | NUR ---
HEPARIN DRIP PATIENT CURRENTLY INFUSING AT 19ML/HR. APTT 87.0. PER PROTOCOL, DECREASE BY 2ML/HR HEPARIN DECREASED FROM 19 ML/HR TO 17 ML/HR PER PROTOCOL. VERIFIED WITH SECOND RNKRYSTAL.
[2018-12-14 17:00] VITALS: BP 113/73
--- NOTE | 2018-12-14 19:30 | NUR ---
assumed care, pt. awake, relatives at bedside, dobutamine and heparin drip infusing well, no c/o pain, bilat. legs elevated on pillow, not in distress.
[2018-12-14] MEDS: ATORVASTATIN 20 MG TAB PO SCH (21:34)
[2018-12-14 22:00] VITALS: BP 90/59
[2018-12-14 22:52] LABS: INR 1.24 (0.9-1.15); Partial Thromboplastin Time 33.9 sec (23.64-32.05)
--- NOTE | 2018-12-14 22:58 | NUR ---
pt. ptt- 33.9, per protocol, dose inc. to 3ml, from 17ml to 20ml.
--- NOTE | 2018-12-14 22:58 | NUR ---
aptt-33.9, per protocol inc. dose to 2ml, from 17ml to 19ml. next ptt after 6hours. Addendum: 12/15/18 at 0049 by Lanny Griffith RN aptt- 33.9, per protocol inc. dose to 3ml instead 2ml, from 17ml to 20ml, next ptt after 6hours.
[2018-12-15] MEDS: HYDROcodone-ACET 5/325MG TAB PO PRN ×3 (01:25→21:57)
[2018-12-15] MEDS: HEPARIN DRIP/D5W 100UNITS/ML 250 ML IV SCH ×2 (03:29→11:29)
[2018-12-15 05:00] VITALS: BP 102/66
[2018-12-15 05:10] VITALS: BP 106/66
[2018-12-15] MEDS: MORPHINE SULF INJ 2 MG/ML SYRINGE 1ML IV PRN ×2 (05:12→13:21)
--- NOTE | 2018-12-15 05:25 | NUR ---
called up lab. re: pt. ptt result, as per lab personnel, ptt is running.
[2018-12-15 05:28] LABS: Basophils # (auto) 0 uL; Basophils % (auto) 0.9 % (0.0-2.0); Eosinophils # (auto) 0 uL; Hematocrit 38.2 % (41.0-53.0); Hemoglobin 12.4 g/dL (13.5-17.5); Lymphocytes # (auto) 1.7 uL; Mean Corpuscular Hemoglobin 27.5 pg (28.0-32.0); Mean Corpuscular Hgb Conc. 32.4 g/dL (32.0-36.0); Mean Corpuscular Volume 84.8 fL (80.0-100.0); Monocytes # (auto) 0.5 uL; Monocytes % (auto) 13.1 % (0.0-12.0); Neutrophils # (auto) 1.8 uL; Nucleated Red Blood Cells % 0.1 %; Platelet Count (auto) 82 10^3/uL (140-450); Red Cell Distribution Width 19.8 % (11.8-14.3); White Blood Cell 4.2 10^3/uL (4.4-10.8)
[2018-12-15] MEDS: ALBUMIN 25% 50 ML IV SCH ×2 (05:33→18:00)
[2018-12-15] MEDS: BUMETANIDE 1mg/4ml VIAL (0.25mg/ml) IV SCH (05:33)
[2018-12-15] MEDS: busPIRone HCL 10 MG TAB PO SCH ×3 (05:34→21:56)
[2018-12-15 05:43] LABS: INR 1.23 (0.9-1.15); Partial Thromboplastin Time 33.9 sec (23.64-32.05)
[2018-12-15 05:44] LABS: BUN/Creatinine Ratio 25.3; Calcium 8.7 mg/dL (8.5-10.1); Magnesium 2.3 mg/dL (1.6-2.6); Potassium 3.8 mmol/L (3.5-5.1)
--- NOTE | 2018-12-15 05:48 | NUR ---
pt. aptt- 33.9, no change. Addendum: 12/15/18 at 0604 by Lanny Griffith RN pt. aptt - 33.9, dose increase 3ml, from 20ml to 23ml.
--- NOTE | 2018-12-15 06:03 | NUR ---
pt. aptt- 33.9, dose increase to 3ml, from 20ml to 23ml.
--- NOTE | 2018-12-15 08:00 | NUR ---
RECEIVED PATIENT ALERT AND ORIENTED X4, ON SEIZURE PRECAUTION, NO SEIZURE ACTIVITY NOTED, DIMINISHED SOUNDS IN BILATERAL LUNG LOBES, COUGHING AND DEEP BREATHING ENCOURAGED, DEMONSTRATED WELL, RR=18, SR WITH BBB R=72 ON TELE MONITOR,DENIED OF SOB OR CHEST PAIN AT THIS MOMENT, ABDOMEN SOFT WITH ACTIVE BS, LAST ON BM 12/14/18 REPORTED, DARK ALMAZ CLOUDY URINE ON URINAL NOTED, GENERAL SKIN INTACT WARM TO TOUCH, PROTECTIVE Z ISABELLA AND OPT FOAM ON SACRUM APPLIED, BILATERAL LOWER EXTREMITIES +4 EDEMA NOTED, KEEP SKIN CLEAN AND DRY, POSITION CHANGE Q2 HOURS, RADIAL AND PEDAL PULSES PALPABLE, HEAD OF BED ELEVATED, BED ON LOW POSITION, RAILS UP X2, CALL LIGHT ON REACH, ON DOBUTAMINE AND HEPARIN DRIP, PENDING PTT BLOOD DRAW AND ECHO ORDERED, WILL CONTINUE MONITORING.
--- NOTE | 2018-12-15 08:40 | NUR ---
PRE OP CONTACTED FOR EGD SCHEDULE FOLLOW UP, APPROXIMATE STIMATE TIME 10:30 REPORTED, NOT IN DISTRESS, FAMILY AT BEDSIDE. Addendum: 12/15/18 at 1158 by Dasha Ortiz RN WRONG PATIENT
[2018-12-15 09:00] VITALS: BP 96/47
--- NOTE | 2018-12-15 09:30 | NUR ---
23 ML/HR ORDERED, HEPARIN DRIP LAB CONTACTED FOR 10:30 PTT DRAW FOLLOW UP.
[2018-12-15] MEDS: metOLazone 5 MG TAB PO SCH (10:00)
[2018-12-15] MEDS: CARVEDILOL 3.125 MG TAB PO SCH ×2 (10:00→21:56)
[2018-12-15] MEDS: ASPirin-EC 81 mg tab PO SCH (10:04)
[2018-12-15] MEDS: FAMOTIDINE 20 MG TAB PO SCH (10:06)
[2018-12-15] MEDS: POTASSIUM CHLORIDE 8 MEQ TAB PO SCH ×2 (10:08→21:57)
[2018-12-15] MEDS: SACUBITRIL-VALSARTAN 24mg/26mg TAB PO SCH ×3 (10:41→21:57)
--- NOTE | 2018-12-15 11:00 | NUR ---
WENT ON BED FOR EGD, TOLERATED WELL, WILL CONTINUE FOLLOW UP. Addendum: 12/15/18 at 1153 by Dasha Ortiz RN WRONG PATIENT
[2018-12-15 11:12] LABS: INR 1.27 (0.9-1.15)
--- NOTE | 2018-12-15 11:15 | NUR ---
10:30 PTT L=80.9, HEPARIN DRIP ADJUSTED BY DECREASING 200U ORDERED, SITTING ON BED, NOT IN DISTRESS, DENIED CHEST PAIN.
[2018-12-15 11:16] LABS: Partial Thromboplastin Time 80.9 sec (23.64-32.05)
[2018-12-15 13:00] VITALS: BP 105/64
[2018-12-15] MEDS: ONDANSETRON HCL 4 MG/2 ML VIAL IV PRN (13:21)
[2018-12-15] MEDS: DOBUTamine 1000MCG/ML 250 ML IV SCH (13:38)
[2018-12-15 16:27] VITALS: BP 99/64
[2018-12-15] MEDS ORDERED: SACU1TAB PO (16:56)
[2018-12-15] MEDS ORDERED: CAR3125T PO (16:56)
[2018-12-15] MEDS ORDERED: METO5TAB56 PO (16:56)
[2018-12-15] MEDS ORDERED: DOX100T PO (16:56)
[2018-12-15] MEDS: DOXYCYCLINE 100 MG TAB/CAP PO SCH (18:06)
[2018-12-15] MEDS: BUMETANIDE 1 MG TAB PO SCH (18:07)
--- NOTE | 2018-12-15 18:45 | NUR ---
AT 1730 DR. MOSLEY WAS CALLED AND LEFT A MESSAGE FOR MEDICATION AND STATUS FOLLOW REQUESTED BY DR. MARTIN, DR. MOSLEY CALLED BACK AND ORDERED CARDIAC CLEAR PATIENT TO BE D/C, PTT=>139, DR. MARTIN WAS CALLED FOR FOLLOW UP AND UPDATES, WAITING FOR CALL BACK.
--- NOTE | 2018-12-15 19:00 | NUR ---
DR. MARIO Rodriguez CALLED BACK, D/C HEPARIN DRIP AND D/C DEBUTANTE DRIP WAS ORDERED, PENDING D/C AND SS IN AM ORDERED.
--- NOTE | 2018-12-15 19:30 | NUR ---
Opening Shift Note Assumed care of patient. No S/S of distress/SOB or pain. Bed in low/locked position, bed rails up x2. Pt sitting on side of bed. Will continue to monitor for changes Q1hr and PRN. per day shift DENNIS Bettencourt- pt to have heparin and dobutamine d/c per pullman car repairer request. pt dc home cancelled.
--- NOTE | 2018-12-15 19:41 | NUR ---
AMBULATING IN THE ROOM, TOLERATING WELL, STOP IV MEDICATION DRIPS ORDERED, NOT IN DISTRESS, DENIED PAIN, REPORT WAS GIVEN TO THE ESTHETICIAN FACIALIST RN.
[2018-12-15] MEDS: APIXABAN 5 MG TAB PO SCH (21:56)
[2018-12-15] MEDS: ATORVASTATIN 20 MG TAB PO SCH (21:57)
--- NOTE | 2018-12-15 22:58 | NUR ---
GAVE REPORT TO DENNIS HERNANDEZ
[2018-12-15 23:39] VITALS: BP 97/74
[2018-12-16] MEDS: DOXYCYCLINE 100 MG TAB/CAP PO SCH ×2 (04:13→17:54)
[2018-12-16] MEDS: BUMETANIDE 1 MG TAB PO SCH (04:26)
[2018-12-16] MEDS: ALBUMIN 25% 50 ML IV SCH (04:26)
[2018-12-16] MEDS: busPIRone HCL 10 MG TAB PO SCH ×2 (04:27→14:39)
[2018-12-16 04:34] VITALS: BP 97/57
[2018-12-16 05:11] VITALS: BP 93/52
[2018-12-16 06:59] LABS: Basophils # (auto) 0 uL; Eosinophils # (auto) 0 uL; Eosinophils % (auto) 1.2 % (0.0-7.0); Hematocrit 39.2 % (41.0-53.0); Hemoglobin 12.7 g/dL (13.5-17.5); Lymphocytes # (auto) 1.4 uL; Lymphocytes % (auto) 36.1 % (10.0-50.0); Mean Corpuscular Hemoglobin 27.4 pg (28.0-32.0); Mean Corpuscular Hgb Conc. 32.4 g/dL (32.0-36.0); Mean Corpuscular Volume 84.8 fL (80.0-100.0); Monocytes # (auto) 0.5 uL; Monocytes % (auto) 13.5 % (0.0-12.0); Neutrophils # (auto) 1.9 uL; Neutrophils % (auto) 48.2 % (37.0-80.0); Nucleated Red Blood Cells % 0.2 %; Platelet Count (auto) 90 10^3/uL (140-450); Red Blood Cells 4.62 10^6/uL (4.5-5.90); White Blood Cell 3.9 10^3/uL (4.4-10.8)
[2018-12-16 07:11] LABS: Red Cell Distribution Width 20.2 % (11.8-14.3)
[2018-12-16 07:14] LABS: BUN/Creatinine Ratio 23.7; Calcium 9.4 mg/dL (8.5-10.1); Potassium 4.4 mmol/L (3.5-5.1)
--- NOTE | 2018-12-16 07:30 | NUR ---
OPENING SHIFT NOTE PATIENT RESTING IN BED, HIGH FOWLERS. RESPIRATIONS EVEN AND UNLABORED. NO S/S OF DISTRESS NOTED AT THIS TIME. PATIENT CURRENTLY WEARING LIFE VEST. NO COMPLAINTS OF PAIN AT THIS TIME. UPDATED ON POC. ALL QUESTIONS ANSWERED. FALL PRECAUTIONS IN PLACE PER HOSPITAL PROTOCOL. BED IN LOWEST LOCKED POSITION WITH CALL LIGHT WITHIN REACH. WILL CONTINUE CARE.
[2018-12-16 08:00] VITALS: BP 97/71
--- NOTE | 2018-12-16 09:45 | NUR ---
SPOKE TO Kasia MOSLEY. STATED PATIENT IS CLEARED FROM CARDIOLOGY STAND POINT. FOLLOW UP WITH HIM IN 2 WEEKS. ALSO STATED [facility]
[2018-12-16] MEDS: SACUBITRIL-VALSARTAN 24mg/26mg TAB PO SCH (10:00)
[2018-12-16] MEDS: CARVEDILOL 3.125 MG TAB PO SCH (10:00)
--- NOTE | 2018-12-16 10:25 | NUR ---
SPOKE TO Kasia MARTIN. UPDATED ON PATIENT STATUS. STATED HE WILL COME BY TO DISCHARGE PATIENT.
[2018-12-16] MEDS: APIXABAN 5 MG TAB PO SCH (10:29)
[2018-12-16] MEDS: FAMOTIDINE 20 MG TAB PO SCH (10:29)
[2018-12-16] MEDS: POTASSIUM CHLORIDE 8 MEQ TAB PO SCH (10:29)
[2018-12-16] MEDS: ASPirin-EC 81 mg tab PO SCH (10:37)
[2018-12-16] MEDS: metOLazone 5 MG TAB PO SCH (10:45)
[2018-12-16 13:00] VITALS: BP_SYST 102; BP_SYST 109; BP_DIAS 65; BP_DIAS 67
[2018-12-16] MEDS: MORPHINE SULF INJ 2 MG/ML SYRINGE 1ML IV PRN (14:40)
--- NOTE | 2018-12-16 15:00 | NUR ---
SPOKE TO SW REGARDING AICD PLACEMENT REFERREL. STATED TO PRINT OUT ORDER AND FACE SHEET AND LEAVE IN BOX FOR SW TO FOLLOW UP ON TUESDAY.
--- NOTE | 2018-12-16 15:29 | NUR ---
Nutrition Follow-up Notes Wt.: 113.4 kg as of yesterday. Pt's asleep, no immediate family member at bedside during rounds this morning. Pt's no signs of distress noted earlier, currently on Cardiac: 2 gms Na, Low Chol, Low Fat diet diet with adequate PO intake aeb 90% ave. consumed meals (x6) in last 2.5 days. Noted pt's for active Wound, Pulmonary, Nephrology and Cardiology consults. Est. Needs based on AdBw (69 kg) : 1400 to 1750 kcal (20-25 kcal/kgAdBW), 69 to 83 gms pro (1.0-1.2 gm/kgAdBW). Will continue to monitor pertinent labs and reassess nutrient need prn Labs: Na 134 L, BUN 23 H; Tpro 6.1 L, Alb 2.8 L, Tot cruzito 2.7 H Skin: Chano scale 19, low risk, skin intact per rock crushing machine operator. GI: Pt had 1 BM this morning per rock crushing machine operator. PES: Altered nutrition related lab values r/t current/chronic medical condition aeb hyponatremia, elev. BUN, hyperbilirubinemia and mod hypoalbuminemia. Obesity r/t food intake more than body requirement aeb 211% IBW, BMI 45.7 kg/m2 and increased body adiposity Will continue to monitor PO intake, skin status, pertinent labs and weight trend. F/u in 3 to 5 days. Rec.: 1.) Continue close supervision during meals. 2.) If Albumin continues trending down, consider Prostat 1 pkt BID. 3.) Refer pt to RD for further nutrition education and weight monitoring upon discharge. 4.) Continue current plan of care.
[2018-12-16 16:44] VITALS: BP 98/69
--- NOTE | 2018-12-16 18:00 | NUR ---
Discharge instructions given as ordered. Encourage to follow up with PMD as instructed, Instructed to follow up with primary care doctor and with medical hospital sales.. All questions and concerns addressed. Patient verbalized understanding. Received new prescriptions and instructed to take as prescribed. Informed to wear life vest at all time. Informed of [facility]. verbalized understanding. IV removed with catheter intact, pressure dressing applied. Telemetry unit returned to ICU. Patient taken to vehicle via wheelchair with all personal belongings, accompanied by staff and family member. No distress noted at time of departure.
--- NOTE | 2018-12-18 11:58 | NUR ---
SS consult received while educational program assistant over the weekend. Patient has orders to follow up with Dr. Zaldivar for an AICD placement within 2 weeks of discharge. Placed a call to Dr. Estrella's office, spoke with Sharron, and was advised that patient has a follow up appt. on 12.19.18, and to fax the referral and to write urgent on it so that medical records can put it in his chart for Dr. Low to see at his appt. and write the referral. Referral faxed top PCP's office Dr. Estrella at ph:[phone] . Tried to call patient to confirm his appt, no answer, left a message to call me back.
== END 2018-12-16 18:00 | disposition home or self-care (01) | DRG 139 ==
LOC: ER 20:59 → EDUNIT# 20:59 → TELE 21:00 → TELE-WESTW 12-10 10:13
PROVIDERS: ADMIT Emergency Medicine; ATTEND Hospitalist
DX: J18.9 Pneumonia, unspecified organism (principal); J96.20 Acute and chronic respiratory failure, unspecified whether with hypoxia or hypercapnia; I50.43 Acute on chronic combined systolic (congestive) and diastolic (congestive) heart failure; I47.2 Ventricular tachycardia; D61.818 Other pancytopenia; E44.0 Moderate protein-calorie malnutrition; I42.0 Dilated cardiomyopathy; Z68.42 Body mass index [BMI] 45.0-49.9, adult; J44.0 Chronic obstructive pulmonary disease with (acute) lower respiratory infection; I11.0 Hypertensive heart disease with heart failure; I70.0 Atherosclerosis of aorta; I42.7 Cardiomyopathy due to drug and external agent; E66.9 Obesity, unspecified; E87.6 Hypokalemia; F12.90 Cannabis use, unspecified, uncomplicated; F15.10 Other stimulant abuse, uncomplicated; F41.9 Anxiety disorder, unspecified; I44.7 Left bundle-branch block, unspecified; J44.1 Chronic obstructive pulmonary disease with (acute) exacerbation; Z79.01 Long term (current) use of anticoagulants; Z79.82 Long term (current) use of aspirin; Z79.899 Other long term (current) drug therapy; Z87.01 Personal history of pneumonia (recurrent); Z95.810 Presence of automatic (implantable) cardiac defibrillator
CPT/HCPCS: 36415; 36600; 71045; 80048; 80053; 80307; 81001; 82565; 82805; 83735; 83880; 84132; 84484; 85025; 85610; 85730; 87081; 93005; 93306; 96374; 96375; 99291; G0378; J2405; Q9956

== ENCOUNTER 2018-12-30 17:10 | Inpatient (IN) | payer MEDICAID ==
[~2018-12-30] VITALS: Ht 185.4 cm; Wt 111.9 kg
--- NOTE | 2018-12-30 00:53 | NUR ---
Telemetry admit from ER BRIANDAVID LEONARD admitted to Telemetry unit after SBAR received. Patient oriented to REEMA RUIZ, RN primary RN, hyampom unit, 281 room, A bed, and unit policies regarding patient care and visiting hours. Patient now on continuous telemetry monitoring, tele box # 65 and telemetry reading on arrival to unit is SR. Patient placed on bedside oxygen, weighed by bedscale and encouraged to call if they need something. All questions and concerns addressed, patient verbalized understanding. Patient ask for anxiety medication. will administer as PRN medication.
[~2018-12-30 17:10] MED LIST changes: +CAR3125T PO; +DOX100T PO; -FURO1TAB31 PO; -METO25TA36 PO; +METO5TAB56 PO; +SACU1TAB PO; -SPIR25TA88 PO; -[UNRECOGNIZED DRUG - CODE] PO
[2018-12-30 18:12] LABS: Basophils # (auto) 0 uL; Basophils % (auto) 0.8 % (0.0-2.0); Eosinophils # (auto) 0 uL; Eosinophils % (auto) 0.6 % (0.0-7.0); Lymphocytes # (auto) 1.6 uL; Lymphocytes % (auto) 33.8 % (10.0-50.0); Mean Corpuscular Hemoglobin 27.2 pg (28.0-32.0); Mean Corpuscular Hgb Conc. 32.4 g/dL (32.0-36.0); Monocytes # (auto) 0.7 uL; Monocytes % (auto) 14.1 % (0.0-12.0); Neutrophils # (auto) 2.4 uL; Neutrophils % (auto) 50.7 % (37.0-80.0); Nucleated Red Blood Cells % 0.3 %; Platelet Count (auto) 116 10^3/uL (140-450); Red Blood Cells 4.76 10^6/uL (4.5-5.90); White Blood Cell 4.7 10^3/uL (4.4-10.8)
[2018-12-30] MEDS ORDERED: ONDANSETRON HCL 4 MG/2 ML VIAL IV ONE (18:15)
[2018-12-30] MEDS ORDERED: MORPHINE SULF INJ 2 MG/ML SYRINGE 1ML IV ONE ×2 (18:15→20:00)
[2018-12-30 18:22] LABS: Red Cell Distribution Width 21.6 % (11.8-14.3)
[2018-12-30 18:27] LABS: Calcium 8.5 mg/dL (8.5-10.1); Potassium 3.3 mmol/L (3.5-5.1)
[2018-12-30 18:30] LABS: Albumin 3.3 g/dL (3.4-5.0); BUN/Creatinine Ratio 18.4
[2018-12-30 18:34] LABS: Bilirubin, Total 3.3 mg/dL (0.2-1.0); Total Protein 6.8 g/dL (6.4-8.2)
[2018-12-30] MEDS ORDERED: POTASSIUM CHL 20 Meq TABLET PO ONE (20:00)
[2018-12-30] MEDS ORDERED: FUROSEMIDE 40 MG/4 ML VIAL IV ONE (20:00)
[2018-12-31] MEDS ORDERED: DOCUSATE SOD 100 MG CAP PO PRN (00:15)
[2018-12-31] MEDS ORDERED: ACETAMINOPHEN 325 MG TAB PO PRN (00:15)
[2018-12-31] MEDS ORDERED: IPRATROPIUM BROM 0.5 MG/2.5ML INH SOL NEB PRN (00:30)
[2018-12-31] MEDS ORDERED: ALBUTEROL SULF 2.5 MG/0.5ML(0.5%) NEB SOLN NEB PRN (00:30)
[2018-12-31] MEDS: LORazepam 0.5 MG TAB PO PRN (01:30)
[2018-12-31] MEDS: ENOXAPARIN SOD 150 MG/1 ML SYRINGE SC SCH ×2 (01:30→17:08)
[2018-12-31 02:00] VITALS: BP 94/73
--- NOTE | 2018-12-31 02:30 | NUR ---
PT STATES THAT HIS MOM WILL BRING IN A LIST OF HIS HOME MEDICATION DURING THE DAY.
[2018-12-31 02:59] VITALS: BP 107/77
[2018-12-31 05:16] VITALS: BP 98/73
[2018-12-31] MEDS ORDERED: BUMETANIDE 1mg/4ml VIAL (0.25mg/ml) IV SCH (06:00)
[2018-12-31] MEDS: PANTOPRAZOLE 40 MG TAB PO SCH (06:42)
--- NOTE | 2018-12-31 07:30 | NUR ---
Opening Shift Note Assumed care of patient, awake, alert, and oriented x4. No S/S of distress/pain, but patient has labored breathing and is SOB on nasal cannula O2 @ 3L. IV is in the left AC and is asymptomatic, intact, patent, and saline locked. Bed is locked and in lowest position and call light is within reach. Instructed on POC and to call for assist PRN, and patient verbalized understanding. Will continue to monitor for changes Q1hr and PRN.
[2018-12-31 08:30] VITALS: BP 90/53
[2018-12-31] MEDS: SACUBITRIL-VALSARTAN 24mg/26mg TAB PO SCH ×2 (09:53→21:58)
[2018-12-31] MEDS: CARVEDILOL 3.125 MG TAB PO SCH ×2 (09:54→21:58)
[2018-12-31 09:58] LABS: Basophils # (auto) 0 uL; Basophils % (auto) 0.8 % (0.0-2.0); Eosinophils # (auto) 0.1 uL; Eosinophils % (auto) 1.2 % (0.0-7.0); Hematocrit 39.3 % (41.0-53.0); Hemoglobin 12.8 g/dL (13.5-17.5); Lymphocytes # (auto) 1.8 uL; Lymphocytes % (auto) 42.8 % (10.0-50.0); Mean Corpuscular Hemoglobin 27.3 pg (28.0-32.0); Mean Corpuscular Hgb Conc. 32.6 g/dL (32.0-36.0); Mean Corpuscular Volume 83.8 fL (80.0-100.0); Monocytes # (auto) 0.4 uL; Monocytes % (auto) 10.1 % (0.0-12.0); Neutrophils # (auto) 1.9 uL; Neutrophils % (auto) 45.1 % (37.0-80.0); Nucleated Red Blood Cells % 0.5 %; Platelet Count (auto) 111 10^3/uL (140-450); Red Blood Cells 4.69 10^6/uL (4.5-5.90); White Blood Cell 4.2 10^3/uL (4.4-10.8)
[2018-12-31 10:11] LABS: Red Cell Distribution Width 21.6 % (11.8-14.3)
--- NOTE | 2018-12-31 10:22 | NUR ---
Respiratory note: ASSESSED PT FOR PRN TX PT WAS AWAKE AND ALERT, NO RESP DISTRESS NOTED. HR 178, RR 22, SPO2 100%. BS ARE CLEAR, NO INDICATION FOR TX AT THIS TIME. PT KNOWS TO HAVE RT PAGED IF TX IS NEEDED.
[2018-12-31 10:23] LABS: Calcium 8.7 mg/dL (8.5-10.1); Potassium 3.8 mmol/L (3.5-5.1)
--- NOTE | 2018-12-31 10:30 | NUR ---
Dr. Xavier MD, at bedside.
[2018-12-31] MEDS ORDERED: ROPI1TAB2 PO (16:52)
[2018-12-31] MEDS: MORPHINE SULF INJ 2 MG/ML SYRINGE 1ML IV PRN (17:08)
[2018-12-31 17:27] VITALS: BP 88/66
[2018-12-31] MEDS: BUMETANIDE 2.5mg/10ml (0.25 mg/ml) INJ IV SCH (18:23)
--- NOTE | 2018-12-31 18:32 | NUR ---
Respiratory note: ASSESSED PT FOR PRN MED NEB AT THIS TIME, PT DENIES SOB AT THIS TIME, NO RESP DISTRESS NOTED, NO TX INDICATED. PULSE OX 100% ON RA, HR 93, RR 20, BILATERAL BS CLEAR DECREASED.
--- NOTE | 2018-12-31 20:35 | NUR ---
SPOKE TO DR. MOSLEY AND PLACED TELEPHONE ORDERS FOLLOWS, DO NOT GIVE LOVENOX, NPO AFTER MIDNIGHT, CBC, INR, BMP, INSERT LEFT ARM IV ACCESS AND ECHO IN THE MORNING TO CHECK FOR LEFT VENTRICULAR CLOT FOR POSSIBLE AICD PLACEMENT.
[2018-12-31] MEDS: ATORVASTATIN 20 MG TAB PO SCH (21:10)
--- NOTE | 2018-12-31 21:16 | NUR ---
Opening Shift Note Assumed care of patient, awake and alert. No S/S of distress/SOB or pain. Bilateral legs and feet are edematous, kept elevated, BP is low with good MAP, pt is asymptomatic, held BP meds. Instructed on POC and to call for assist PRN, will continue to monitor for changes Q1hr and PRN.
[2018-12-31 22:23] VITALS: BP 82/57
[2019-01-01 05:54] VITALS: BP 87/77
[2019-01-01] MEDS: BUMETANIDE 2.5mg/10ml (0.25 mg/ml) INJ IV SCH ×3 (06:00→17:59)
[2019-01-01] MEDS: PANTOPRAZOLE 40 MG TAB PO SCH (06:17)
[2019-01-01 06:18] LABS: Basophils # (auto) 0 uL; Eosinophils # (auto) 0.1 uL; Eosinophils % (auto) 1.6 % (0.0-7.0); Hematocrit 38.7 % (41.0-53.0); Hemoglobin 12.7 g/dL (13.5-17.5); Lymphocytes # (auto) 1.8 uL; Lymphocytes % (auto) 43.7 % (10.0-50.0); Mean Corpuscular Hemoglobin 27.7 pg (28.0-32.0); Mean Corpuscular Hgb Conc. 32.8 g/dL (32.0-36.0); Mean Corpuscular Volume 84.2 fL (80.0-100.0); Monocytes # (auto) 0.6 uL; Monocytes % (auto) 13.8 % (0.0-12.0); Neutrophils # (auto) 1.6 uL; Neutrophils % (auto) 39.9 % (37.0-80.0); Nucleated Red Blood Cells % 0.6 %; Platelet Count (auto) 108 10^3/uL (140-450); Red Blood Cells 4.59 10^6/uL (4.5-5.90)
[2019-01-01 06:24] LABS: BUN/Creatinine Ratio 19.1; Calcium 8.7 mg/dL (8.5-10.1); Potassium 3.8 mmol/L (3.5-5.1)
[2019-01-01 06:25] LABS: INR 1.32 (0.9-1.15)
[2019-01-01 06:45] LABS: Red Cell Distribution Width 20.9 % (11.8-14.3)
[2019-01-01 08:00] VITALS: BP 94/66
--- NOTE | 2019-01-01 08:00 | NUR ---
Opening Shift Note Assumed care of patient, awake and alert. No S/S of distress/SOB or pain. Instructed on POC and to call for assist PRN, will continue to monitor for changes Q1hr and PRN.
[2019-01-01 09:00] VITALS: BP 94/66
[2019-01-01] MEDS ORDERED: OPTISON 3ml Vial for INJ IV ONE (09:29)
[2019-01-01] MEDS: CARVEDILOL 3.125 MG TAB PO SCH ×2 (09:50→22:31)
[2019-01-01] MEDS: SACUBITRIL-VALSARTAN 24mg/26mg TAB PO SCH ×2 (09:50→22:31)
[2019-01-01] MEDS ORDERED: ENOXAPARIN SOD 150 MG/1 ML SYRINGE SC ONE (10:30)
[2019-01-01] MEDS: MORPHINE SULF INJ 2 MG/ML SYRINGE 1ML IV PRN ×2 (11:31→20:59)
[2019-01-01 13:00] VITALS: BP 100/86
--- NOTE | 2019-01-01 13:55 | NUR ---
Respiratory note: PRN MEDNEB TX CHECK. NO RESPIRATORY DISTRESS NOTED. SPO2 95% ON RA HR 155 RR 16 B/S CLEAR. PT AWARE TO HAVE RN PAGE RT IF THEY BECOME SOB.
[2019-01-01 17:00] VITALS: BP 88/59
[2019-01-01] MEDS: ENOXAPARIN SOD 150 MG/1 ML SYRINGE SC SCH (22:33)
[2019-01-01] MEDS: ATORVASTATIN 20 MG TAB PO SCH (22:33)
[2019-01-02 04:30] VITALS: BP 97/57
[2019-01-02] MEDS: BUMETANIDE 2.5mg/10ml (0.25 mg/ml) INJ IV SCH ×3 (05:43→20:52)
[2019-01-02] MEDS: PANTOPRAZOLE 40 MG TAB PO SCH (05:43)
[2019-01-02 05:55] LABS: Basophils # (auto) 0 uL; Basophils % (auto) 0.5 % (0.0-2.0); Eosinophils # (auto) 0.1 uL; Eosinophils % (auto) 1.8 % (0.0-7.0); Hematocrit 39.2 % (41.0-53.0); Hemoglobin 12.7 g/dL (13.5-17.5); Lymphocytes # (auto) 1.7 uL; Mean Corpuscular Hemoglobin 27.2 pg (28.0-32.0); Mean Corpuscular Hgb Conc. 32.3 g/dL (32.0-36.0); Mean Corpuscular Volume 84.4 fL (80.0-100.0); Monocytes # (auto) 0.6 uL; Monocytes % (auto) 14.7 % (0.0-12.0); Neutrophils # (auto) 1.5 uL; Nucleated Red Blood Cells % 0.2 %; Platelet Count (auto) 101 10^3/uL (140-450); Red Blood Cells 4.65 10^6/uL (4.5-5.90); White Blood Cell 3.8 10^3/uL (4.4-10.8)
[2019-01-02 06:13] LABS: Red Cell Distribution Width 21.6 % (11.8-14.3)
[2019-01-02 06:16] LABS: Urine Bacteria FEW /hpf (None Seen); Urine Blood Negative /uL (Negative); Urine Hyaline Cast FEW /lpf (0 - 2); Urine Mucus FEW (None Seen); Urine Specific Gravity 1.014 (1.001-1.035); Urine WBC 1 /hpf (0 - 3)
[2019-01-02 06:35] LABS: Calcium 8.7 mg/dL (8.5-10.1); Magnesium 2.3 mg/dL (1.6-2.6); Potassium 3.8 mmol/L (3.5-5.1)
[2019-01-02 06:48] LABS: Alcohol, Urine < 3.0 mg/dL (0-5); Amphetamine Screen, Urine NEGATIVE (NEGATIVE); Barbiturate Scree,Urine NEGATIVE (NEGATIVE); Benzodiazephine Screen, Urine NEGATIVE (NEGATIVE); Cannabinoid Screen, Urine POSITIVE (NEGATIVE); Cocaine Screen, Urine NEGATIVE (NEGATIVE); Opiate Scree,Urine POSITIVE (NEGATIVE); Phencyclidine Screen, Urine NEGATIVE (NEGATIVE)
[2019-01-02] MEDS: ENOXAPARIN SOD 150 MG/1 ML SYRINGE SC SCH (07:04)
--- NOTE | 2019-01-02 07:20 | NUR ---
OPENING NOTE ASSUMED CARE OF PT. ALERT AND ORIENTED. NO S/S OF SOB/DISTRESS NOTED. DENIES ANY PAIN. SAFETY PRECAUTIONS IN PLACE. BED SET TO LOWEST POSITION/LOCKED. BEDSIDE RAILS UP X2. CALL LIGHT WITHIN REACH. INSTRUCTED PT TO CALL FOR ASSISTANCE. UPDATED ON POC. PT VERBALIZED UNDERSTANDING. WILL CONTINUE TO MONITOR Q1HR AND PRN.
[2019-01-02 09:00] VITALS: BP 89/61
[2019-01-02] MEDS: CARVEDILOL 3.125 MG TAB PO SCH ×2 (09:50→20:52)
[2019-01-02] MEDS: SACUBITRIL-VALSARTAN 24mg/26mg TAB PO SCH ×2 (09:50→20:52)
--- NOTE | 2019-01-02 11:04 | NUR ---
Respiratory note: PT ASSESSED FOR PRN MED NEB TX. PT IS BREATHING COMFORTABLY ON RA. NO SOB NOTED. POX 100%, HR 87, RR 18. B/S ARE CLEAR THROUGHOUT AND DIMINISHED IN THE BASES. TX IS NOT INDICATED AT THIS TIME.
[2019-01-02] MEDS: MORPHINE SULF INJ 2 MG/ML SYRINGE 1ML IV PRN ×2 (11:08→20:52)
[2019-01-02 13:00] VITALS: BP 91/66
--- NOTE | 2019-01-02 16:53 | NUR ---
assessment Patient is a 43 year old male who is alert and oriented. Patients cognitive abilities are intact. Prior to admission patient lived home with family and functioned with assistance. Per patient he will return home to his prior living arrangements post discharge and family will transport him home. Patients PCP is Dr Estrella. Patient has 02, rollator, and a nebulizer. Patient may also benefit from home health and med management resumption order. Patient was on service with [facility] on prior admission. Patient has been readmitted for pacemaker placement on . I have provided emotion support. I spoke with patient about his future plans and his support at home. Patients mother Kay is good support for patient and his belief in God. I informed patient he has a right to speak to a social sciences lecturer regarding all care. I informed patient he has a right to participate in any and all discharge planning. Patient does not have a POA and advanced directive. I have offered patient information on POA and advanced directives. I informed the patient the advantages and benefits of having an Advanced Directive. Patient verbalized understanding and agreed to discharge plan home after procedure. Addendum: 01/02/19 at 1656 by Anabel MORALES Amended: Links added.
[2019-01-02 17:00] VITALS: BP 97/72
--- NOTE | 2019-01-02 17:03 | NUR ---
REI SPOKE WITH DR. MOSLEY AT [facility]. PER MD CAROL MINAYA.
--- NOTE | 2019-01-02 17:05 | NUR ---
NS SPOKE TO DR. MOSLEY AT [facility]. NEW ORDERS GIVEN/CARRIED OUT.
[2019-01-02] MEDS: SODIUM CHLORIDE 0.9% 1,000 ML IV SCH (17:58)
--- NOTE | 2019-01-02 20:17 | NUR ---
Opening Shift Note Assumed care of patient, awake and alert. No S/S of distress/SOB or pain. Instructed on POC patient scheduled for AICD placement in am to not eat or drink after midnight and to call for assist PRN patient verbalizes understanding no questions asked, will continue to monitor for changes Q1hr and PRN.
[2019-01-02] MEDS: ATORVASTATIN 20 MG TAB PO SCH (20:52)
[2019-01-02 22:00] VITALS: BP 104/79
[2019-01-03 00:44] VITALS: BP 104/79
[2019-01-03 05:00] VITALS: BP 102/71
[2019-01-03] MEDS: PANTOPRAZOLE 40 MG TAB PO SCH (05:03)
[2019-01-03 06:05] LABS: Basophils # (auto) 0 uL; Basophils % (auto) 0.7 % (0.0-2.0); Eosinophils # (auto) 0 uL; Eosinophils % (auto) 0.9 % (0.0-7.0); Hematocrit 39.9 % (41.0-53.0); Hemoglobin 12.9 g/dL (13.5-17.5); Lymphocytes # (auto) 1.6 uL; Mean Corpuscular Hemoglobin 27.2 pg (28.0-32.0); Mean Corpuscular Hgb Conc. 32.3 g/dL (32.0-36.0); Mean Corpuscular Volume 84.1 fL (80.0-100.0); Monocytes # (auto) 0.7 uL; Monocytes % (auto) 16.7 % (0.0-12.0); Neutrophils # (auto) 1.7 uL; Neutrophils % (auto) 42.7 % (37.0-80.0); Nucleated Red Blood Cells % 0.1 %; Platelet Count (auto) 105 10^3/uL (140-450); Red Blood Cells 4.74 10^6/uL (4.5-5.90); White Blood Cell 4.1 10^3/uL (4.4-10.8)
[2019-01-03 06:19] LABS: BUN/Creatinine Ratio 20.2; Magnesium 2.3 mg/dL (1.6-2.6); Potassium 3.6 mmol/L (3.5-5.1)
[2019-01-03 06:29] LABS: Red Cell Distribution Width 21.4 % (11.8-14.3)
--- NOTE | 2019-01-03 07:38 | NUR ---
Respiratory note: PT IS AWAKE, AND ALERT. NO RESPIRATORY DISTRESS NOTED. SPO2 99% ON RA, HR 82, RR 16, BS CLEAR T/O. PRN MEDNEB TX NOT INDICATED. PT INFORMED TO PUSH CALL BUTTON IF INCREASED WOB, SOB, OR WHEEZING OCCURS.
[2019-01-03 08:18] VITALS: BP 106/73
[2019-01-03] MEDS: SACUBITRIL-VALSARTAN 24mg/26mg TAB PO SCH ×2 (10:00→21:39)
[2019-01-03] MEDS: CARVEDILOL 3.125 MG TAB PO SCH ×2 (10:30→21:24)
--- NOTE | 2019-01-03 12:22 | NUR ---
Nutrition Assessment Notes please see attached link for complete assessment Est. Needs ABW [id number] kcal (23-25 kcal/kgBW), 100-110 gms pro (1.0-1.1 gms/kgBW). Will continue to monitor pertinent labs and reassess nutrient need prn Addendum: 01/03/19 at [address] Amended: Links added.
--- NOTE | 2019-01-03 12:45 | NUR ---
IV removal Left AC 20 gauge IV cath DC'd with clean sterile technique, catheter fully intact. Pressure dressing applied to site. Patient tolerated well.
[2019-01-03 13:14] VITALS: BP 102/68
[2019-01-03] MEDS: SODIUM CHLORIDE 0.9% 1,000 ML IV SCH (13:15)
--- NOTE | 2019-01-03 13:30 | NUR ---
OFF UNIT PATIENT OFF UNIT VIA BED TO CONTACT LENS BLOCKER. NO S/S OF SOB/DISTRESS NOTED.
[2019-01-03] MEDS ORDERED: fentaNYL CITRATE 100 MCG/2 ML VL ONE (13:52)
[2019-01-03] MEDS ORDERED: MIDAZOLAM HCL 1MG/1ML-2 ML VIAL ONE (13:52)
[2019-01-03] MEDS ORDERED: VANCOMYCIN 1GM/250ML 250 ML IV ONE (13:57)
[2019-01-03] MEDS ORDERED: VANCOMYCIN HCL 1000 MG VL ONE (13:57)
[2019-01-03] MEDS ORDERED: BACITRACIN INJ 50000 UNIT VIAL ONE (13:58)
[2019-01-03] MEDS ORDERED: LIDOCAINE 2%HCL (LOCAL ANESTH.) INJ 20ML MDV ONE (14:03)
[2019-01-03] MEDS ORDERED: NOREPINEPHRINE 8 MG/250ML KIT 250 ML IV ONE (14:39)
--- NOTE | 2019-01-03 15:47 | NUR ---
RX PATIENT RX HAS BEEN FILL DOWNSTAIRS BY [facility]. Addendum: 01/03/19 at 1936 by Bell Martin RN ORIGINAL SCRIP[facility] PLACE IN PATIENTS CHART. CLAIRE NURSE MADE AWARE OF RX DOWN AT [facility].
[2019-01-03] MEDS ORDERED: ALBUMIN 5% 250 ML IV ONE ×2 (16:48→17:00)
[2019-01-03] MEDS: BUMETANIDE 2.5mg/10ml (0.25 mg/ml) INJ IV SCH (18:00)
[2019-01-03 19:18] LABS: Hemoglobin 13.4 g/dL (13.5-17.5)
[2019-01-03 19:21] LABS: Hematocrit 41.9 % (41.0-53.0); Mean Corpuscular Hemoglobin 26.8 pg (28.0-32.0); Mean Corpuscular Volume 83.6 fL (80.0-100.0); Platelet Count (auto) 107 10^3/uL (140-450); Red Blood Cells 5.01 10^6/uL (4.5-5.90); White Blood Cell 4.6 10^3/uL (4.4-10.8)
[2019-01-03 19:23] LABS: Red Cell Distribution Width 21.5 % (11.8-14.3)
[2019-01-03 19:24] LABS: Band Neutrophils % (manual) 0; Basophils % (manual) 0 (0.0-2.0); Blast Cells 0; Metamyelocytes % 0; Myelocytes % 0; Promyelocytes % 0; Reactive Lymphocytes 0
[2019-01-03 19:25] LABS: Chloride 102 mmol/L (98-107); Sodium 137 mmol/L (136-145)
[2019-01-03 19:30] LABS: Anion Gap 11 (5-15); BUN/Creatinine Ratio 19.3; Blood Urea Nitrogen 21 mg/dL (7-18); Calcium 9.2 mg/dL (8.5-10.1); Carbon Dioxide 24 mmol/L (21-32); GFR African American 95 mL/min; GFR Non-African American 78 mL/min; Glucose 81 mg/dL (74-106)
[2019-01-03 20:35] VITALS: BP 107/74
[2019-01-03] MEDS: MORPHINE SULF INJ 2 MG/ML SYRINGE 1ML IV PRN (20:42)
[2019-01-03] MEDS: VANCOMYCIN 1GM/250ML 250 ML IV SCH (20:42)
[2019-01-03] MEDS: FLORASTOR (S. BOULARDII) 250 MG CAP PO SCH (21:39)
[2019-01-03] MEDS: ATORVASTATIN 20 MG TAB PO SCH (21:39)
[2019-01-03] MEDS: HYDROcodone-ACET 5/325MG TAB PO PRN (21:39)
[2019-01-03] MEDS: DOXYCYCLINE 100 MG TAB/CAP PO SCH (21:40)
[2019-01-03 22:30] LABS: Eosinophils % (manual) 2 (0-7); Lymphocytes % (manual) 30 (10.0-50.0); Monocytes % (manual) 15 (0-12)
--- NOTE | 2019-01-03 23:18 | NUR ---
Respiratory note: ASSESSED PT FOR PRN MED NEB JETHRO THIS TIME, PT DENIES SOB AT THIS TIME, NO RESP DISTRESS NOTED, NO TX INDICATED. PULSE OX 95% ON RA, HR 102, RR 20, BILATERAL BS DECREASED.
[2019-01-04] MEDS: MORPHINE SULF INJ 2 MG/ML SYRINGE 1ML IV PRN ×2 (01:21→10:26)
[2019-01-04] MEDS: HYDROcodone-ACET 5/325MG TAB PO PRN (03:02)
[2019-01-04] MEDS: LORazepam 0.5 MG TAB PO PRN (03:03)
[2019-01-04 04:59] VITALS: BP 101/74
[2019-01-04] MEDS: PANTOPRAZOLE 40 MG TAB PO SCH (05:20)
[2019-01-04] MEDS: BUMETANIDE 2.5mg/10ml (0.25 mg/ml) INJ IV SCH (05:20)
[2019-01-04 06:19] LABS: Basophils # (auto) 0 uL; Basophils % (auto) 0.6 % (0.0-2.0); Eosinophils # (auto) 0 uL; Eosinophils % (auto) 0.9 % (0.0-7.0); Hematocrit 37.1 % (41.0-53.0); Hemoglobin 11.9 g/dL (13.5-17.5); Lymphocytes # (auto) 1.4 uL; Mean Corpuscular Hgb Conc. 32.1 g/dL (32.0-36.0); Mean Corpuscular Volume 83.9 fL (80.0-100.0); Monocytes # (auto) 0.8 uL; Monocytes % (auto) 17.5 % (0.0-12.0); Neutrophils # (auto) 2.2 uL; Nucleated Red Blood Cells % 0.1 %; Platelet Count (auto) 88 10^3/uL (140-450); Red Blood Cells 4.42 10^6/uL (4.5-5.90); White Blood Cell 4.5 10^3/uL (4.4-10.8)
[2019-01-04 06:24] LABS: Red Cell Distribution Width 21.1 % (11.8-14.3)
[2019-01-04 06:37] LABS: BUN/Creatinine Ratio 19.2; Calcium 8.4 mg/dL (8.5-10.1); Magnesium 2.2 mg/dL (1.6-2.6); Potassium 3.7 mmol/L (3.5-5.1)
--- NOTE | 2019-01-04 07:50 | NUR ---
Opening Note Assumed care of patient, he is A & O x4, c/o pain to the pacemaker incision site. No s/s of distress at this time. ECG leads fixed at this time. Patient is concerned about if the pacer is working or not, he states "they only put 2 wires, when they wanted to place 3 wires." Will consult with physician. POC for today discussed with patient, was told by NOC shift RN, that patient has prescriptions filled in [facility] to be given to patient upon discharge. Will check with [facility]. Bed is in lowest, locked position, call light within reach, urinal at bedside. Educated patient regarding pacer protocol, not to lift left arm, sling is in place, will continue ice pack placement to upper left chest. Will continue to monitor Q1h and PRN.
--- NOTE | 2019-01-04 08:10 | NUR ---
Francie from [facility] at bedside. Was able to explain to patient regarding lead placement of the pacemaker and what he may need in the future. Patient understood.
[2019-01-04 09:00] VITALS: BP 108/68
[2019-01-04] MEDS: VANCOMYCIN 1GM/250ML 250 ML IV SCH (10:14)
[2019-01-04] MEDS: FLORASTOR (S. BOULARDII) 250 MG CAP PO SCH (10:21)
[2019-01-04] MEDS: DOXYCYCLINE 100 MG TAB/CAP PO SCH (10:21)
[2019-01-04] MEDS: SACUBITRIL-VALSARTAN 24mg/26mg TAB PO SCH (10:21)
[2019-01-04] MEDS: CARVEDILOL 3.125 MG TAB PO SCH (10:24)
[2019-01-04] MEDS: SODIUM CHLORIDE 0.9% 1,000 ML IV SCH (10:58)
[2019-01-04 13:00] VITALS: BP 117/58
--- NOTE | 2019-01-04 13:00 | NUR ---
Percocet prescription taken to [facility].
[2019-01-04] MEDS ORDERED: OXYC325T14 PO ×2 (14:18→14:19)
--- NOTE | 2019-01-04 15:15 | NUR ---
Discharge instructions given as ordered. Encourage to follow up with PMD as instructed. All questions and concerns addressed. Patient verbalized understanding. Medication reconciliation form completed and copy given to patient. Medications filled at [facility] and given to patient at discharge. IV removed with catheter intact, pressure dressing applied. Telemetry unit returned to ICU. Patient taken to vehicle via wheelchair with all personal belongings, accompanied by staff and family member. No distress noted at time of departure.
--- NOTE | 2019-01-04 15:45 | NUR ---
Patient discharged. Addendum: 01/04/19 at 1546 by RAJ ENRIQUE RN RN Amended: Links added.
== END 2019-01-04 15:15 | disposition home or self-care (01) | DRG 161 ==
LOC: ER 17:10 → TELE 17:11 → TELE-WESTW 12-31 00:51
PROVIDERS: ADMIT Nurse Practitioner Family; ATTEND Internal Medicine
PROC: 0JH608Z Insertion of Defibrillator Generator into Chest Subcutaneous Tissue and Fascia, Open Approach (ICD-10-PCS; principal; 2019-01-03)
PROC: 02H63KZ Insertion of Defibrillator Lead into Right Atrium, Percutaneous Approach (ICD-10-PCS; 2019-01-03)
PROC: 02HK3KZ Insertion of Defibrillator Lead into Right Ventricle, Percutaneous Approach (ICD-10-PCS; 2019-01-03)
PROC: B5171ZZ Fluoroscopy of Left Subclavian Vein using Low Osmolar Contrast (ICD-10-PCS; 2019-01-03)
DX: I11.0 Hypertensive heart disease with heart failure (principal); D69.6 Thrombocytopenia, unspecified; I42.0 Dilated cardiomyopathy; E44.1 Mild protein-calorie malnutrition; F11.20 Opioid dependence, uncomplicated; I51.3 Intracardiac thrombosis, not elsewhere classified; I50.43 Acute on chronic combined systolic (congestive) and diastolic (congestive) heart failure; E87.6 Hypokalemia; J44.9 Chronic obstructive pulmonary disease, unspecified; D64.9 Anemia, unspecified; F41.9 Anxiety disorder, unspecified; I25.10 Atherosclerotic heart disease of native coronary artery without angina pectoris; Z68.32 Body mass index [BMI] 32.0-32.9, adult; Z79.01 Long term (current) use of anticoagulants; Z79.899 Other long term (current) drug therapy; Z87.891 Personal history of nicotine dependence; Z91.19 Patient's noncompliance with other medical treatment and regimen
CPT/HCPCS: 33249; 36415; 71045; 80048; 80053; 80307; 81001; 83735; 83880; 84443; 84484; 85007; 85025; 85027; 85610; 87081; 93005; 93306; 94640; 94761; 96374; 96375; 96376; 97116; 97163; 99152; 99153; C1785; G0378; J2250; J2405; Q9956

== ENCOUNTER 2020-01-31 09:56 | Emergency (ER) | payer MEDICAID ==
[~2020-01-31] VITALS: Ht 185.4 cm; Wt 90.7 kg
[~2020-01-31 09:56] MED LIST changes: +OXYC325T14 PO
[2020-01-31] MEDS ORDERED: PIPERACILLIN-TAZOB 3.375GM 100 ML IV ONE ×2 (09:59→10:15)
[2020-01-31] MEDS ORDERED: TETANUS-DIPTH-ACEL PERTUSSIS 0.5ML SYR Tdap IM ONE (10:15)
[2020-01-31] MEDS ORDERED: LACTATED RINGER'S 1,000 ML IV ONE (10:15)
[2020-01-31] MEDS ORDERED: ONDANSETRON HCL 4 MG/2 ML VIAL IV ONE (10:30)
[2020-01-31] MEDS ORDERED: MORPHINE SULFATE 4 MG/ML SYR/VIAL IV ONE (10:30)
[2020-01-31 10:40] VITALS: BP 93/37
== END 2020-01-31 10:47 | disposition short-term general hospital (02) ==
LOC: ER 09:56
DX: S31.139A Puncture wound of abdominal wall without foreign body, unspecified quadrant without penetration into peritoneal cavity, initial encounter (principal); I11.0 Hypertensive heart disease with heart failure; I50.9 Heart failure, unspecified; Z79.899 Other long term (current) drug therapy; W34.09XA Accidental discharge from other specified firearms, initial encounter; Y93.89 Activity, other specified; Y92.89 Other specified places as the place of occurrence of the external cause; Y99.8 Other external cause status
CPT/HCPCS: 36430; 86850; 86900; 86901; 86920; 90471; 90715; 96365; 96375; 99285; J2270; J2405; J2543; P9016

== ENCOUNTER 2020-12-18 18:40 | Inpatient (IN) | payer MEDICAID ==
[~2020-12-18] VITALS: Ht 190.5 cm; Wt 86.0 kg
[~2020-12-18 18:40] MED LIST changes: +METO5TAB5 PO; -METO5TAB56 PO
[2020-12-18 19:21] LABS: Eosinophils # (auto) 0 10 ^3/uL (0-0.8); Eosinophils % (auto) 0.3 % (0.0-7.0); Mean Corpuscular Hgb Conc. 32.8 g/dL (32.0-36.0); White Blood Cell 6.7 10^3/uL (4.4-10.8)
[2020-12-18 19:23] LABS: Basophils # (auto) 0 10 ^3/uL (0-0.2); Basophils % (auto) 0.6 % (0.0-2.0); Hematocrit 36.7 % (41.0-53.0); Lymphocytes # (auto) 0.5 10 ^3/uL (0.4-5.4); Mean Corpuscular Hemoglobin 30.3 pg (28.0-32.0); Mean Corpuscular Volume 92.4 fL (80.0-100.0); Monocytes # (auto) 0.9 10 ^3/uL (0-1.3); Monocytes % (auto) 12.8 % (0.0-12.0); Neutrophils # (auto) 5.3 10 ^3/uL (1.6-8.6); Neutrophils % (auto) 79.3 % (37.0-80.0); Nucleated Red Blood Cells % 0.1 %; Red Blood Cells 3.98 10^6/uL (4.5-5.90); Red Cell Distribution Width 16.9 % (11.8-14.3)
[2020-12-18 19:33] LABS: INR 1.44 (0.9-1.15); Partial Thromboplastin Time 33.5 sec (23.6-33.0)
[2020-12-18 19:35] LABS: BUN/Creatinine Ratio 23.5; Magnesium 2.4 mg/dL (1.6-2.6); Potassium 3.4 mmol/L (3.5-5.1)
[2020-12-18 19:41] LABS: Bilirubin, Total 4.1 mg/dL (0.2-1.0); Total Protein 6.7 g/dL (6.4-8.2)
[2020-12-18 20:50] LABS: Urine Bacteria NONE SEEN /hpf (None Seen); Urine Blood Negative /uL (Negative); Urine Specific Gravity 1.016 (1.001-1.035); Urine WBC 1 /hpf (0 - 3)
[2020-12-18] MEDS: NOREPINEPHRINE 8 MG/250ML KIT 250 ML IV SCH (20:55)
[2020-12-19] MEDS ORDERED: ACETAMINOPHEN 325 MG TAB PO ONE (00:15)
[2020-12-19 06:42] LABS: Eosinophils # (auto) 0 10 ^3/uL (0-0.8); Hemoglobin 13.2 g/dL (13.5-17.5); Nucleated Red Blood Cells % 0.1 %
[2020-12-19 06:44] LABS: Basophils # (auto) 0.1 10 ^3/uL (0-0.2); Eosinophils % (auto) 0.1 % (0.0-7.0); Hematocrit 39.2 % (41.0-53.0); Lymphocytes # (auto) 0.8 10 ^3/uL (0.4-5.4); Lymphocytes % (auto) 9.1 % (10.0-50.0); Mean Corpuscular Hemoglobin 31.1 pg (28.0-32.0); Mean Corpuscular Hgb Conc. 33.5 g/dL (32.0-36.0); Mean Corpuscular Volume 92.6 fL (80.0-100.0); Monocytes % (auto) 11.1 % (0.0-12.0); Neutrophils # (auto) 6.9 10 ^3/uL (1.6-8.6); Neutrophils % (auto) 78.7 % (37.0-80.0); Red Blood Cells 4.24 10^6/uL (4.5-5.90); White Blood Cell 8.7 10^3/uL (4.4-10.8)
[2020-12-19 07:55] LABS: BUN/Creatinine Ratio 21.7; Calcium 9.6 mg/dL (8.5-10.1); Potassium 3.5 mmol/L (3.5-5.1)
[2020-12-19] MEDS: APIXABAN 5 MG TAB PO SCH ×2 (12:06→22:30)
[2020-12-19] MEDS ORDERED: LIDOCAINE 1% (LOCAL ANESTH.) PF 5ml SDV ID ONE (18:15)
[2020-12-19] MEDS: FUROSEMIDE 40 MG/4 ML VIAL IV SCH (19:46)
[2020-12-19] MEDS: SODIUM CHLOR 0.9% PF (SALINE LOCK) 10ML VIAL/SYR IV SCH (22:00)
[2020-12-19] MEDS: AMIODARONE HCL 200 MG TAB PO SCH (22:30)
[2020-12-20] MEDS ORDERED: VANCOMYCIN 1GM/250ML 250 ML IV ONE (05:00)
[2020-12-20] MEDS ORDERED: VANCOMYCIN PER PHARMACY 0 MG IV SCH (05:00)
[2020-12-20] MEDS: FUROSEMIDE 40 MG/4 ML VIAL IV SCH ×2 (06:27→18:12)
[2020-12-20 07:26] LABS: Basophils # (auto) 0 10 ^3/uL (0-0.2); Basophils % (auto) 0.4 % (0.0-2.0); Eosinophils # (auto) 0 10 ^3/uL (0-0.8); Eosinophils % (auto) 0.3 % (0.0-7.0); Hematocrit 40.4 % (41.0-53.0); Hemoglobin 13.4 g/dL (13.5-17.5); Lymphocytes # (auto) 0.9 10 ^3/uL (0.4-5.4); Mean Corpuscular Hemoglobin 30.8 pg (28.0-32.0); Mean Corpuscular Hgb Conc. 33.1 g/dL (32.0-36.0); Mean Corpuscular Volume 93.1 fL (80.0-100.0); Monocytes # (auto) 0.6 10 ^3/uL (0-1.3); Monocytes % (auto) 9.4 % (0.0-12.0); Neutrophils # (auto) 5.2 10 ^3/uL (1.6-8.6); Neutrophils % (auto) 76.9 % (37.0-80.0); Nucleated Red Blood Cells % 0.1 %; Red Blood Cells 4.34 10^6/uL (4.5-5.90); Red Cell Distribution Width 17.3 % (11.8-14.3); White Blood Cell 6.8 10^3/uL (4.4-10.8)
[2020-12-20 07:36] LABS: Calcium 9.4 mg/dL (8.5-10.1); Potassium 3.9 mmol/L (3.5-5.1)
[2020-12-20 07:39] LABS: BUN/Creatinine Ratio 24.2
[2020-12-20] MEDS: APIXABAN 5 MG TAB PO SCH ×2 (09:12→21:54)
[2020-12-20] MEDS: AMIODARONE HCL 200 MG TAB PO SCH ×2 (09:12→21:55)
[2020-12-20] MEDS: SODIUM CHLOR 0.9% PF (SALINE LOCK) 10ML VIAL/SYR IV SCH ×2 (09:12→21:55)
[2020-12-20] MEDS: VANCOMYCIN 1GM/250ML 250 ML IV SCH (16:15)
[2020-12-20] MEDS: ACETAMINOPHEN 500 MG TAB PO PRN (18:12)
[2020-12-20] MEDS: MORPHINE SULFATE INJECTION 2 MG/ML SYRG IV PRN (20:28)
[2020-12-20] MEDS: HYDROcodone-ACET 5/325MG TAB PO PRN (20:28)
[2020-12-21] MEDS: VANCOMYCIN 1GM/250ML 250 ML IV SCH (02:43)
[2020-12-21] MEDS: FUROSEMIDE 40 MG/4 ML VIAL IV SCH ×2 (06:37→18:01)
[2020-12-21] MEDS: HYDROcodone-ACET 5/325MG TAB PO PRN (06:44)
[2020-12-21 08:01] LABS: BUN/Creatinine Ratio 24.8; Calcium 9.4 mg/dL (8.5-10.1); Potassium 3.7 mmol/L (3.5-5.1)
[2020-12-21 08:02] LABS: Basophils # (auto) 0.1 10 ^3/uL (0-0.2); Basophils % (auto) 1.3 % (0.0-2.0); Eosinophils # (auto) 0.1 10 ^3/uL (0-0.8); Hematocrit 39.9 % (41.0-53.0); Hemoglobin 13.5 g/dL (13.5-17.5); Lymphocytes # (auto) 1.1 10 ^3/uL (0.4-5.4); Lymphocytes % (auto) 22.8 % (10.0-50.0); Mean Corpuscular Hemoglobin 31.4 pg (28.0-32.0); Mean Corpuscular Hgb Conc. 33.9 g/dL (32.0-36.0); Mean Corpuscular Volume 92.6 fL (80.0-100.0); Monocytes # (auto) 0.5 10 ^3/uL (0-1.3); Monocytes % (auto) 11.4 % (0.0-12.0); Neutrophils # (auto) 2.9 10 ^3/uL (1.6-8.6); Neutrophils % (auto) 62.5 % (37.0-80.0); Nucleated Red Blood Cells % 0.2 %; Red Blood Cells 4.31 10^6/uL (4.5-5.90); White Blood Cell 4.7 10^3/uL (4.4-10.8)
[2020-12-21] MEDS: SODIUM CHLOR 0.9% PF (SALINE LOCK) 10ML VIAL/SYR IV SCH ×2 (10:49→22:00)
[2020-12-21] MEDS: APIXABAN 5 MG TAB PO SCH ×2 (10:49→22:00)
[2020-12-21] MEDS: AMIODARONE HCL 200 MG TAB PO SCH ×2 (10:49→23:34)
[2020-12-21] MEDS: MORPHINE SULFATE INJECTION 2 MG/ML SYRG IV PRN (15:18)
[2020-12-21] MEDS: ONDANSETRON HCL 4 MG/2 ML VIAL IV PRN (15:18)
[2020-12-21] MEDS ORDERED: TEMAZEPAM 15 MG CAP PO ONE (20:30)
[2020-12-21] MEDS ORDERED: VANCOMYCIN 1GM/250ML 250 ML IV ONE (21:00)
[2020-12-21] MEDS: NOREPINEPHRINE 8 MG/250ML KIT 250 ML IV SCH (21:00)
[2020-12-22] MEDS ORDERED: VASOPRESSIN 20 UNIT/ML ONE (00:43)
[2020-12-22] MEDS: VASOPRESSIN 50 UNITS in D5W 5% 247.5 ML IV SCH ×2 (00:52→21:30)
[2020-12-22] MEDS: NOREPINEPHRINE 8 MG/250ML KIT 250 ML IV SCH ×3 (01:58→20:30)
[2020-12-22 06:30] LABS: Eosinophils # (auto) 0.1 10 ^3/uL (0-0.8); Neutrophils # (auto) 2.4 10 ^3/uL (1.6-8.6); White Blood Cell 4.2 10^3/uL (4.4-10.8)
[2020-12-22 06:32] LABS: Basophils # (auto) 0.1 10 ^3/uL (0-0.2); Basophils % (auto) 1.6 % (0.0-2.0); Eosinophils % (auto) 1.4 % (0.0-7.0); Hematocrit 40.8 % (41.0-53.0); Hemoglobin 13.5 g/dL (13.5-17.5); Lymphocytes # (auto) 1.1 10 ^3/uL (0.4-5.4); Lymphocytes % (auto) 27.4 % (10.0-50.0); Mean Corpuscular Hemoglobin 30.5 pg (28.0-32.0); Mean Corpuscular Hgb Conc. 33.2 g/dL (32.0-36.0); Mean Corpuscular Volume 92.1 fL (80.0-100.0); Monocytes # (auto) 0.5 10 ^3/uL (0-1.3); Monocytes % (auto) 12.9 % (0.0-12.0); Neutrophils % (auto) 56.7 % (37.0-80.0); Nucleated Red Blood Cells % 0.3 %; Red Blood Cells 4.43 10^6/uL (4.5-5.90); Red Cell Distribution Width 16.9 % (11.8-14.3)
[2020-12-22] MEDS: FUROSEMIDE 40 MG/4 ML VIAL IV SCH ×2 (06:34→19:22)
[2020-12-22] MEDS: MIDODRINE HCL 10 MG TAB PO SCH ×3 (06:34→19:21)
[2020-12-22 06:50] LABS: Calcium 9.5 mg/dL (8.5-10.1); Potassium 5.4 mmol/L (3.5-5.1)
[2020-12-22] MEDS: SODIUM CHLOR 0.9% PF (SALINE LOCK) 10ML VIAL/SYR IV SCH ×2 (09:01→22:02)
[2020-12-22] MEDS: HYDROcodone-ACET 5/325MG TAB PO PRN (09:09)
[2020-12-22] MEDS: AMIODARONE HCL 200 MG TAB PO SCH ×2 (10:00→22:00)
[2020-12-22] MEDS ORDERED: ATOR10TA52 PO (10:21)
[2020-12-22] MEDS ORDERED: ASPI-325 PO (10:21)
[2020-12-22] MEDS ORDERED: METO25TA93 PO (10:21)
[2020-12-22] MEDS: APIXABAN 5 MG TAB PO SCH ×2 (11:25→22:00)
[2020-12-22] MEDS: DOBUTamine 1000MCG/ML 250 ML IV SCH (17:54)
[2020-12-23] MEDS: DOBUTamine 1000MCG/ML 250 ML IV SCH ×4 (01:30→23:38)
[2020-12-23] MEDS: FUROSEMIDE 40 MG/4 ML VIAL IV SCH ×2 (05:44→17:37)
[2020-12-23 06:50] LABS: Basophils # (auto) 0 10 ^3/uL (0-0.2); Basophils % (auto) 0.9 % (0.0-2.0); Eosinophils # (auto) 0 10 ^3/uL (0-0.8); Hematocrit 28.2 % (41.0-53.0); Hemoglobin 9.3 g/dL (13.5-17.5); Lymphocytes # (auto) 0.5 10 ^3/uL (0.4-5.4); Neutrophils # (auto) 2.2 10 ^3/uL (1.6-8.6)
[2020-12-23 06:53] LABS: Eosinophils % (auto) 0.9 % (0.0-7.0); Lymphocytes % (auto) 17.2 % (10.0-50.0); Mean Corpuscular Hemoglobin 31.5 pg (28.0-32.0); Mean Corpuscular Volume 95.5 fL (80.0-100.0); Monocytes # (auto) 0.4 10 ^3/uL (0-1.3); Monocytes % (auto) 12.4 % (0.0-12.0); Neutrophils % (auto) 68.6 % (37.0-80.0); Nucleated Red Blood Cells % 0.3 %; Red Blood Cells 2.95 10^6/uL (4.5-5.90); White Blood Cell 3.1 10^3/uL (4.4-10.8)
[2020-12-23] MEDS: HYDROcodone-ACET 5/325MG TAB PO PRN ×2 (07:10→12:24)
[2020-12-23] MEDS: AMIODARONE HCL 200 MG TAB PO SCH ×2 (09:35→22:14)
[2020-12-23] MEDS: APIXABAN 5 MG TAB PO SCH ×2 (09:35→22:14)
[2020-12-23] MEDS: SODIUM CHLOR 0.9% PF (SALINE LOCK) 10ML VIAL/SYR IV SCH ×2 (10:09→22:00)
[2020-12-23] MEDS ORDERED: VANCOMYCIN 1GM/250ML 250 ML IV ONE (14:15)
[2020-12-23] MEDS ORDERED: POTA10TA51 PO (14:28)
[2020-12-23] MEDS ORDERED: SERT-376 PO (14:31)
[2020-12-23] MEDS ORDERED: TRAM50TA2 PO (14:31)
[2020-12-23] MEDS ORDERED: FURO40TA4 PO (14:31)
[2020-12-23] MEDS ORDERED: DIGO0.12 PO (14:31)
[2020-12-23 19:32] LABS: Calcium 7.8 mg/dL (8.5-10.1); Magnesium 2.1 mg/dL (1.6-2.6)
[2020-12-23 19:46] LABS: BUN/Creatinine Ratio 24.4
[2020-12-23] MEDS: MORPHINE SULFATE INJECTION 2 MG/ML SYRG IV PRN (20:36)
[2020-12-23 21:14] LABS: BUN/Creatinine Ratio 27.1; Calcium 8.8 mg/dL (8.5-10.1); Potassium 4.1 mmol/L (3.5-5.1)
[2020-12-23] MEDS: NOREPINEPHRINE 8 MG/250ML KIT 250 ML IV SCH (21:52)
[2020-12-23] MEDS: VASOPRESSIN 50 UNITS in D5W 5% 247.5 ML IV SCH (23:05)
[2020-12-24] MEDS: MORPHINE SULFATE INJECTION 2 MG/ML SYRG IV PRN ×5 (01:41→23:48)
[2020-12-24] MEDS: DOBUTamine 1000MCG/ML 250 ML IV SCH ×3 (02:35→22:04)
[2020-12-24] MEDS: NOREPINEPHRINE 8 MG/250ML KIT 250 ML IV SCH ×2 (03:52→23:05)
[2020-12-24] MEDS: FUROSEMIDE 40 MG/4 ML VIAL IV SCH ×2 (06:02→18:41)
[2020-12-24] MEDS ORDERED: VANCOMYCIN 1GM/250ML 250 ML IV ONE (08:45)
[2020-12-24] MEDS: ONDANSETRON HCL 4 MG/2 ML VIAL IV PRN (08:58)
[2020-12-24] MEDS: SODIUM CHLOR 0.9% PF (SALINE LOCK) 10ML VIAL/SYR IV SCH ×2 (09:53→22:05)
[2020-12-24] MEDS: APIXABAN 5 MG TAB PO SCH ×2 (09:56→22:09)
[2020-12-24] MEDS: AMIODARONE HCL 200 MG TAB PO SCH ×2 (09:56→22:10)
[2020-12-24 11:06] LABS: BUN/Creatinine Ratio 28.8; Calcium 8.7 mg/dL (8.5-10.1); Potassium 4.2 mmol/L (3.5-5.1)
[2020-12-24] MEDS: VASOPRESSIN 50 UNITS in D5W 5% 247.5 ML IV SCH (18:42)
[2020-12-25] MEDS: MORPHINE SULFATE INJECTION 2 MG/ML SYRG IV PRN ×3 (00:53→11:24)
[2020-12-25] MEDS: DOBUTamine 1000MCG/ML 250 ML IV SCH ×6 (01:04→13:10)
[2020-12-25] MEDS: HYDROcodone-ACET 5/325MG TAB PO PRN ×3 (04:06→22:07)
[2020-12-25] MEDS: FUROSEMIDE 40 MG/4 ML VIAL IV SCH ×2 (06:17→23:03)
[2020-12-25] MEDS: AMIODARONE HCL 200 MG TAB PO SCH ×2 (09:13→23:03)
[2020-12-25] MEDS: SODIUM CHLOR 0.9% PF (SALINE LOCK) 10ML VIAL/SYR IV SCH ×2 (09:13→22:08)
[2020-12-25] MEDS: APIXABAN 5 MG TAB PO SCH ×2 (09:14→23:04)
[2020-12-25 09:41] LABS: Basophils # (auto) 0 10 ^3/uL (0-0.2); Basophils % (auto) 0.2 % (0.0-2.0); Eosinophils # (auto) 0 10 ^3/uL (0-0.8); Eosinophils % (auto) 0.7 % (0.0-7.0); Hemoglobin 11.3 g/dL (13.5-17.5); Lymphocytes # (auto) 0.4 10 ^3/uL (0.4-5.4); Monocytes # (auto) 0.5 10 ^3/uL (0-1.3)
[2020-12-25 09:43] LABS: Hematocrit 33.7 % (41.0-53.0); Lymphocytes % (auto) 9.5 % (10.0-50.0); Mean Corpuscular Hemoglobin 30.9 pg (28.0-32.0); Mean Corpuscular Hgb Conc. 33.5 g/dL (32.0-36.0); Mean Corpuscular Volume 92.3 fL (80.0-100.0); Monocytes % (auto) 12.7 % (0.0-12.0); Neutrophils % (auto) 76.9 % (37.0-80.0); Nucleated Red Blood Cells % 0.1 %; Red Blood Cells 3.65 10^6/uL (4.5-5.90); Red Cell Distribution Width 16.8 % (11.8-14.3); White Blood Cell 3.9 10^3/uL (4.4-10.8)
[2020-12-25] MEDS: VANCOMYCIN 1GM/250ML 250 ML IV SCH (09:47)
[2020-12-25 09:55] LABS: Potassium 4.2 mmol/L (3.5-5.1)
[2020-12-25 09:56] LABS: BUN/Creatinine Ratio 29.6
[2020-12-25] MEDS: ALPRAZolam 0.5 MG TAB PO PRN (11:23)
[2020-12-25] MEDS: ACETAMINOPHEN 500 MG TAB PO PRN (11:23)
[2020-12-25] MEDS: DOBUTamine HCL 500 MG in D5W 5% 210 ML IV SCH ×4 (14:45→22:06)
[2020-12-25] MEDS: NOREPINEPHRINE BITARTRATE 16 MG in SODIUM CHL 0.9% 234 ML IV SCH ×2 (14:45→23:49)
[2020-12-25 15:26] LABS: Calcium 9.1 mg/dL (8.5-10.1)
[2020-12-25 15:29] LABS: Bilirubin, Total 3.4 mg/dL (0.2-1.0); Total Protein 6.8 g/dL (6.4-8.2)
[2020-12-25] MEDS: VASOPRESSIN 50 UNITS in D5W 5% 247.5 ML IV SCH (18:29)
[2020-12-26] MEDS: ALPRAZolam 0.5 MG TAB PO PRN (00:34)
[2020-12-26] MEDS: DOBUTamine HCL 500 MG in D5W 5% 210 ML IV SCH (00:34)
[2020-12-26] MEDS: PHENYLEPHRINE IV 250 ML IV SCH ×5 (02:00→22:57)
[2020-12-26] MEDS: FUROSEMIDE 40 MG/4 ML VIAL IV SCH ×2 (06:00→18:00)
[2020-12-26] MEDS ORDERED: EPINEPHrine HCL 250 ML IV SCH (06:15)
[2020-12-26] MEDS ORDERED: EPINEPHrine HCL 250 ML IV ONE (06:16)
[2020-12-26] MEDS: VANCOMYCIN 1GM/250ML 250 ML IV SCH (09:00)
[2020-12-26] MEDS: EPINEPHrine HCL 250 ML IV SCH ×3 (09:30→22:00)
[2020-12-26] MEDS: APIXABAN 5 MG TAB PO SCH ×2 (10:00→23:08)
[2020-12-26] MEDS: AMIODARONE HCL 200 MG TAB PO SCH ×2 (10:00→23:07)
[2020-12-26] MEDS: SODIUM CHLOR 0.9% PF (SALINE LOCK) 10ML VIAL/SYR IV SCH ×2 (10:00→22:05)
[2020-12-26] MEDS: HYDROcodone-ACET 5/325MG TAB PO PRN (21:16)
[2020-12-26] MEDS: VASOPRESSIN 50 UNITS in D5W 5% 247.5 ML IV SCH (21:30)
[2020-12-27] MEDS: PHENYLEPHRINE IV 250 ML IV SCH ×7 (00:44→23:11)
[2020-12-27] MEDS ORDERED: NOREPINEPHRINE BITARTRATE 2 ML IV ONE (00:50)
[2020-12-27] MEDS ORDERED: NOREPINEPHRINE 8 MG/250ML KIT 250 ML IV ONE ×2 (00:50→08:35)
[2020-12-27] MEDS: NOREPINEPHRINE BITARTRATE 16 MG in SODIUM CHL 0.9% 234 ML IV SCH ×2 (00:59→10:19)
[2020-12-27] MEDS ORDERED: LIDOCAINE W/ EPINEPHRINE 1% 20ML VIAL ONE (02:54)
[2020-12-27] MEDS ORDERED: LIDOCAINE 1% HCL (LOCAL ANESTH.) INJ 20ML MDV ONE (02:56)
[2020-12-27] MEDS: DOBUTamine HCL 500 MG in D5W 5% 210 ML IV SCH ×4 (04:46→23:20)
[2020-12-27] MEDS: VASOPRESSIN 50 UNITS in D5W 5% 247.5 ML IV SCH (05:22)
[2020-12-27] MEDS: ALPRAZolam 0.5 MG TAB PO PRN ×2 (05:50→22:25)
[2020-12-27] MEDS: FUROSEMIDE 40 MG/4 ML VIAL IV SCH ×2 (06:00→17:59)
[2020-12-27] MEDS: EPINEPHrine HCL 250 ML IV SCH ×2 (06:30→21:10)
[2020-12-27] MEDS: VANCOMYCIN 1GM/250ML 250 ML IV SCH (09:00)
[2020-12-27] MEDS: SODIUM CHLOR 0.9% PF (SALINE LOCK) 10ML VIAL/SYR IV SCH ×2 (10:19→22:16)
[2020-12-27] MEDS: AMIODARONE HCL 200 MG TAB PO SCH ×2 (10:37→22:21)
[2020-12-27] MEDS: APIXABAN 5 MG TAB PO SCH ×2 (10:38→22:21)
[2020-12-27] MEDS: SODIUM CHLORIDE 0.9% 1,000 ML IV SCH (11:15)
[2020-12-27] MEDS ORDERED: LORazepam 2MG/ML-1ML VIAL ONE (14:03)
[2020-12-27 14:12] VITALS: BP 109/73
[2020-12-27] MEDS ORDERED: ALBUTEROL SULF 2.5 MG/0.5ML(0.5%) NEB SOLN NEB PRN (14:45)
[2020-12-27] MEDS ORDERED: IPRATROPIUM BROM 0.5 MG/2.5ML INH SOL NEB PRN (14:45)
[2020-12-27 16:44] VITALS: BP 108/68
[2020-12-27] MEDS: LORazepam 2MG/ML-1ML VIAL IV PRN ×2 (18:15→20:33)
[2020-12-27 18:35] LABS: Amphetamine Screen, Urine NEGATIVE (NEGATIVE); Barbiturate Scree,Urine NEGATIVE (NEGATIVE); Benzodiazephine Screen, Urine POSITIVE (NEGATIVE); Cannabinoid Screen, Urine POSITIVE (NEGATIVE); Cocaine Screen, Urine NEGATIVE (NEGATIVE); Opiate Scree,Urine POSITIVE (NEGATIVE); Phencyclidine Screen, Urine NEGATIVE (NEGATIVE)
[2020-12-27 18:47] LABS: Alcohol, Urine < 3.0 mg/dL (0-10)
[2020-12-27 19:16] VITALS: BP 64/33
[2020-12-27 20:19] VITALS: BP 101/68
[2020-12-27] MEDS ORDERED: DOBUTamine 1000MCG/ML 0 ML IV ONE ×2 (20:40→20:52)
[2020-12-27 22:15] VITALS: BP 109/73
[2020-12-27] MEDS: HYDROcodone-ACET 5/325MG TAB PO PRN (22:22)
[2020-12-28] VITALS (14 sets, daily range): BP systolic 94–104; BP diastolic 36–71
[2020-12-28] MEDS: SODIUM CHLORIDE 0.9% 1,000 ML IV SCH ×2 (00:35→14:38)
[2020-12-28] MEDS: LORazepam 2MG/ML-1ML VIAL IV PRN (01:01)
[2020-12-28] MEDS: DOBUTamine HCL 500 MG in D5W 5% 210 ML IV SCH ×4 (01:45→20:13)
[2020-12-28] MEDS: NOREPINEPHRINE BITARTRATE 16 MG in SODIUM CHL 0.9% 234 ML IV SCH ×2 (02:56→19:54)
[2020-12-28] MEDS: PHENYLEPHRINE IV 250 ML IV SCH ×5 (03:00→22:20)
[2020-12-28] MEDS: EPINEPHrine HCL 250 ML IV SCH ×2 (03:42→22:46)
[2020-12-28] MEDS ORDERED: VASOPRESSIN 20 UNIT/ML ONE (05:21)
[2020-12-28] MEDS: VASOPRESSIN 50 UNITS in D5W 5% 247.5 ML IV SCH (05:32)
[2020-12-28] MEDS: FUROSEMIDE 40 MG/4 ML VIAL IV SCH ×2 (06:00→18:07)
[2020-12-28 10:36] LABS: Basophils # (auto) 0 10 ^3/uL (0-0.2); Basophils % (auto) 0.1 % (0.0-2.0); Eosinophils # (auto) 0 10 ^3/uL (0-0.8); Hematocrit 31.8 % (41.0-53.0); Hemoglobin 10.6 g/dL (13.5-17.5); Lymphocytes # (auto) 0.4 10 ^3/uL (0.4-5.4); Lymphocytes % (auto) 9.1 % (10.0-50.0); Mean Corpuscular Hemoglobin 30.8 pg (28.0-32.0); Mean Corpuscular Hgb Conc. 33.3 g/dL (32.0-36.0); Mean Corpuscular Volume 92.4 fL (80.0-100.0); Monocytes # (auto) 0.5 10 ^3/uL (0-1.3); Monocytes % (auto) 10.2 % (0.0-12.0); Neutrophils # (auto) 3.8 10 ^3/uL (1.6-8.6); Neutrophils % (auto) 80.6 % (37.0-80.0); Nucleated Red Blood Cells % 1.1 %; Red Blood Cells 3.44 10^6/uL (4.5-5.90); Red Cell Distribution Width 16.7 % (11.8-14.3); White Blood Cell 4.7 10^3/uL (4.4-10.8)
[2020-12-28 10:49] LABS: Albumin 2.4 g/dL (3.4-5.0); Potassium 4.9 mmol/L (3.5-5.1)
[2020-12-28 10:53] LABS: BUN/Creatinine Ratio 27.8
[2020-12-28] MEDS: SODIUM CHLOR 0.9% PF (SALINE LOCK) 10ML VIAL/SYR IV SCH ×2 (10:54→23:00)
[2020-12-28] MEDS: APIXABAN 5 MG TAB PO SCH ×2 (11:02→23:00)
[2020-12-28] MEDS: AMIODARONE HCL 200 MG TAB PO SCH ×2 (11:02→23:00)
[2020-12-28] MEDS: VANCOMYCIN 1GM/250ML 250 ML IV SCH (11:02)
[2020-12-28] MEDS ORDERED: NOREPINEPHRINE BITARTRATE IV ONE (19:40)
[2020-12-29] VITALS (7 sets, daily range): BP systolic 57–112; BP diastolic 21–75
[2020-12-29] MEDS: PHENYLEPHRINE IV 250 ML IV SCH ×3 (00:14→04:16)
[2020-12-29] MEDS: DOBUTamine HCL 500 MG in D5W 5% 210 ML IV SCH ×3 (02:19→05:00)
[2020-12-29] MEDS ORDERED: NOREPINEPHRINE BITARTRATE IV ONE (03:15)
[2020-12-29] MEDS: NOREPINEPHRINE BITARTRATE 16 MG in SODIUM CHL 0.9% 234 ML IV SCH (05:00)
[2020-12-29] MEDS: VASOPRESSIN 50 UNITS in D5W 5% 247.5 ML IV SCH (05:00)
[2020-12-29] MEDS: EPINEPHrine HCL 250 ML IV SCH (05:39)
[2020-12-29 06:31] LABS: Basophils # (auto) 0 10 ^3/uL (0-0.2); Eosinophils # (auto) 0 10 ^3/uL (0-0.8); Eosinophils % (auto) 0.1 % (0.0-7.0); Hemoglobin 10.5 g/dL (13.5-17.5); Monocytes # (auto) 0.5 10 ^3/uL (0-1.3); White Blood Cell 4.8 10^3/uL (4.4-10.8)
[2020-12-29 06:33] LABS: Basophils % (auto) 0.1 % (0.0-2.0); Lymphocytes # (auto) 0.4 10 ^3/uL (0.4-5.4); Lymphocytes % (auto) 8.1 % (10.0-50.0); Mean Corpuscular Hgb Conc. 33.8 g/dL (32.0-36.0); Mean Corpuscular Volume 91.8 fL (80.0-100.0); Monocytes % (auto) 9.6 % (0.0-12.0); Neutrophils % (auto) 82.1 % (37.0-80.0); Red Blood Cells 3.38 10^6/uL (4.5-5.90); Red Cell Distribution Width 16.7 % (11.8-14.3)
[2020-12-29] MEDS: FUROSEMIDE 40 MG/4 ML VIAL IV SCH ×2 (07:38→17:39)
[2020-12-29] MEDS: LORazepam 2MG/ML-1ML VIAL IV PRN ×2 (08:16→20:26)
[2020-12-29] MEDS: APIXABAN 5 MG TAB PO SCH ×2 (10:00→22:00)
[2020-12-29] MEDS: SODIUM CHLOR 0.9% PF (SALINE LOCK) 10ML VIAL/SYR IV SCH ×2 (10:03→22:22)
[2020-12-29] MEDS: SODIUM CHLORIDE 0.9% 1,000 ML IV SCH ×2 (10:06→16:35)
[2020-12-29] MEDS: AMIODARONE HCL 200 MG TAB PO SCH ×2 (10:29→22:00)
[2020-12-29] MEDS ORDERED: VANCOMYCIN 1GM/250ML 250 ML IV SCH (11:00)
[2020-12-29] MEDS ORDERED: NOREPINEPHRINE 8 MG/250ML KIT 0 ML IV ONE (13:20)
[2020-12-29] MEDS ORDERED: PHENYLEPHRINE IV 250 ML IV SCH (18:00)
[2020-12-29] MEDS: PHENYLEPHRINE INJ 40 MG in SODIUM CHL 0.9% 246 ML IV SCH (18:03)
[2020-12-29] MEDS ORDERED: EPINEPHrine HCL 250 ML IV SCH (18:30)
[2020-12-29] MEDS: EPINEPHrine HCL INJECTION 8 MG in D5W 5% 242 ML IV SCH (19:58)
[2020-12-30] VITALS (11 sets, daily range): BP systolic 47–79; BP diastolic 13–49
[2020-12-30] MEDS: SODIUM CHLORIDE 0.9% 1,000 ML IV SCH ×2 (05:55→19:15)
[2020-12-30] MEDS: FUROSEMIDE 40 MG/4 ML VIAL IV SCH ×2 (06:00→18:21)
[2020-12-30] MEDS: PHENYLEPHRINE INJ 40 MG in SODIUM CHL 0.9% 246 ML IV SCH ×4 (08:00→19:00)
[2020-12-30] MEDS: EPINEPHrine HCL INJECTION 8 MG in D5W 5% 242 ML IV SCH (08:00)
[2020-12-30 09:49] LABS: Basophils # (auto) 0 10 ^3/uL (0-0.2); Eosinophils # (auto) 0 10 ^3/uL (0-0.8); Hematocrit 30.7 % (41.0-53.0); Hemoglobin 10.5 g/dL (13.5-17.5); Lymphocytes # (auto) 0.2 10 ^3/uL (0.4-5.4); Monocytes # (auto) 0.4 10 ^3/uL (0-1.3); Nucleated Red Blood Cells % 0.3 %; Red Blood Cells 3.37 10^6/uL (4.5-5.90)
[2020-12-30 09:51] LABS: Basophils % (auto) 0.2 % (0.0-2.0); Eosinophils % (auto) 0.1 % (0.0-7.0); Lymphocytes % (auto) 2.6 % (10.0-50.0); Mean Corpuscular Hemoglobin 31.2 pg (28.0-32.0); Mean Corpuscular Hgb Conc. 34.2 g/dL (32.0-36.0); Mean Corpuscular Volume 91.2 fL (80.0-100.0); Monocytes % (auto) 4.7 % (0.0-12.0); Neutrophils # (auto) 8.2 10 ^3/uL (1.6-8.6); Neutrophils % (auto) 92.4 % (37.0-80.0); Red Cell Distribution Width 16.6 % (11.8-14.3); White Blood Cell 8.9 10^3/uL (4.4-10.8)
[2020-12-30] MEDS: APIXABAN 5 MG TAB PO SCH ×2 (10:00→22:00)
[2020-12-30 10:07] LABS: Albumin 2.4 g/dL (3.4-5.0); BUN/Creatinine Ratio 17.7; Calcium 7.9 mg/dL (8.5-10.1); Magnesium 2.1 mg/dL (1.6-2.6); Potassium 5.1 mmol/L (3.5-5.1)
[2020-12-30 10:10] LABS: Bilirubin, Total 5.3 mg/dL (0.2-1.0); Total Protein 6.2 g/dL (6.4-8.2)
[2020-12-30] MEDS: DOBUTamine HCL 500 MG in D5W 5% 210 ML IV SCH ×4 (10:30→18:15)
[2020-12-30] MEDS: SODIUM CHLOR 0.9% PF (SALINE LOCK) 10ML VIAL/SYR IV SCH ×2 (11:00→18:21)
[2020-12-30] MEDS: AMIODARONE HCL 200 MG TAB PO SCH ×2 (11:05→23:10)
[2020-12-30] MEDS: ALBUMIN 25% 50 ML IV SCH ×2 (11:58→21:06)
[2020-12-30] MEDS: NOREPINEPHRINE BITARTRATE 16 MG in SODIUM CHL 0.9% 234 ML IV SCH (11:59)
[2020-12-30] MEDS: VASOPRESSIN 50 UNITS in D5W 5% 247.5 ML IV SCH (15:30)
[2020-12-30] MEDS: ALPRAZolam 0.5 MG TAB PO PRN (16:11)
[2020-12-30] MEDS: LORazepam 2MG/ML-1ML VIAL IV PRN (21:20)
[2020-12-31 00:10] VITALS: BP 59/35
[2020-12-31 02:30] VITALS: BP 62/25
[2020-12-31 03:02] VITALS: BP 62/25
[2020-12-31 03:06] LABS: Potassium 4.5 mmol/L (3.5-5.1)
[2020-12-31 03:10] LABS: Calcium 6.7 mg/dL (8.5-10.1)
[2020-12-31 03:53] VITALS: BP 61/37
[2020-12-31] MEDS: ALBUMIN 25% 50 ML IV SCH (04:00)
[2020-12-31 06:45] VITALS: BP 67/31
[2020-12-31 07:30] LABS: Basophils # (auto) 0 10 ^3/uL (0-0.2); Eosinophils # (auto) 0 10 ^3/uL (0-0.8); Hemoglobin 10.2 g/dL (13.5-17.5); Monocytes # (auto) 0.4 10 ^3/uL (0-1.3); Monocytes % (auto) 2.7 % (0.0-12.0)
[2020-12-31 07:34] LABS: Basophils % (auto) 0.2 % (0.0-2.0); Lymphocytes # (auto) 0.3 10 ^3/uL (0.4-5.4); Lymphocytes % (auto) 1.9 % (10.0-50.0); Mean Corpuscular Hemoglobin 31.1 pg (28.0-32.0); Mean Corpuscular Hgb Conc. 34.1 g/dL (32.0-36.0); Mean Corpuscular Volume 91.3 fL (80.0-100.0); Neutrophils # (auto) 13.9 10 ^3/uL (1.6-8.6); Neutrophils % (auto) 95.2 % (37.0-80.0); Nucleated Red Blood Cells % 0.2 %; Red Blood Cells 3.29 10^6/uL (4.5-5.90); Red Cell Distribution Width 16.5 % (11.8-14.3); White Blood Cell 14.6 10^3/uL (4.4-10.8)
[2020-12-31] MEDS ORDERED: DEXTROSE (50%) 50ML SYRG IV ONE (21:44)
[2020-12-31] MEDS ORDERED: SODIUM BICARBONATE 8.4% INJ 50ML SYRINGE IV ONE (21:44)
[2020-12-31] MEDS ORDERED: EPINEPHrine HCL 1 MG/10 ML SYRG IV ONE (21:44)
== END 2020-12-31 07:21 | DRG 194 ==
LOC: EDBD 18:40 → ER 18:42 → OVERFLOW 12-19 03:49 → UNDODISIN 12-31 13:30
PROVIDERS: ADMIT Hospitalist; ATTEND Hospitalist
PROC: 02HV33Z Insertion of Infusion Device into Superior Vena Cava, Percutaneous Approach (ICD-10-PCS; 2020-12-19)
PROC: 4B02XTZ Measurement of Cardiac Defibrillator, External Approach (ICD-10-PCS; 2020-12-22)
PROC: 5A09457 Assistance with Respiratory Ventilation, 24-96 Consecutive Hours, Continuous Positive Airway Pressure (ICD-10-PCS; 2020-12-27)
PROC: 5A12012 Performance of Cardiac Output, Single, Manual (ICD-10-PCS; principal; 2020-12-31)
DX: I13.0 Hypertensive heart and chronic kidney disease with heart failure and stage 1 through stage 4 chronic kidney disease, or unspecified chronic kidney disease (principal); R57.0 Cardiogenic shock; J96.01 Acute respiratory failure with hypoxia; I21.4 Non-ST elevation (NSTEMI) myocardial infarction; R78.81 Bacteremia; D69.6 Thrombocytopenia, unspecified; E87.1 Hypo-osmolality and hyponatremia; I27.20 Pulmonary hypertension, unspecified; I47.2 Ventricular tachycardia; I50.43 Acute on chronic combined systolic (congestive) and diastolic (congestive) heart failure; I42.8 Other cardiomyopathies; N17.9 Acute kidney failure, unspecified; Z95.810 Presence of automatic (implantable) cardiac defibrillator; E78.5 Hyperlipidemia, unspecified; J44.9 Chronic obstructive pulmonary disease, unspecified; B95.62 Methicillin resistant Staphylococcus aureus infection as the cause of diseases classified elsewhere; N18.9 Chronic kidney disease, unspecified; Z66 Do not resuscitate; F32.A Depression, unspecified; F41.9 Anxiety disorder, unspecified; Z20.822 Contact with and (suspected) exposure to COVID-19; E66.01 Morbid (severe) obesity due to excess calories; M54.2 Cervicalgia; Z79.01 Long term (current) use of anticoagulants; Z79.899 Other long term (current) drug therapy; Z86.711 Personal history of pulmonary embolism; Z86.718 Personal history of other venous thrombosis and embolism; Z87.891 Personal history of nicotine dependence; Z91.19 Patient's noncompliance with other medical treatment and regimen; Z68.23 Body mass index [BMI] 23.0-23.9, adult
CPT/HCPCS: 36415; 36569; 36600; 70450; 71045; 72125; 72170; 74018; 76942; 80048; 80053; 80202; 80307; 81001; 82565; 82805; 82962; 83735; 83880; 84443; 84484; 85025; 85610; 85730; 87040; 87077; 87186; 87426; 92950; 93005; 93306; 94660; 96365; G0378; J0171; J2001; J2405; J7060